=== PATIENT | female | born 1965 | race Two or more races ===

== ENCOUNTER 2022-09-30 01:22 | Day surgery (SDC) | payer OTHER, SELFPAY ==
[2022-09-30 13:07] VITALS: BP 124/78; PULSE 77; RESP 20; TEMP 36.6; O2SAT 100; BMI 31.1
[2022-09-30] MEDS: LACTATED RINGERS 1,000 ML 150 ML IV CONT (13:17)
--- NOTE | 2022-09-30 13:33 | P.PNAN_ITS ---
Anes - Initial Pre Proc Eval Procedure: Operation Date: 09/30/22 14:15 Proposed Procedures p Screening Colonoscopy - Chris Rainey MD Date/Time: 09/30/22 13:33 Surgeon: Chris Rainey MD Pre Op Diagnosis: neoplasm screening Patient Data Age: 57 Gender: F Height: 1.57 m Weight: 76.8 kg Last Vital Signs Temp 36.6 C 09/30/22 13:07 Pulse 77 09/30/22 13:07 Resp 20 09/30/22 13:07 BP 124/78 09/30/22 13:07 Pulse Ox 100 09/30/22 13:07 O2 Del Method Room Air 09/30/22 13:07 Allergies Allergy/AdvReac Type Severity Reaction Status Date / Time No Known Allergies Allergy Verified 09/30/22 13:07 Home Medications Medication Instructions Recorded Confirmed Type No Home Medications 09/28/22 09/28/22 History Patient hx anesthesia problems: none Family hx anesthesia problems: none Results Review: All pre-operative results and documents have been reviewed as part of the pre- operative evaluation. [facility] Social History Social History Smoking status: Never smoker Alcohol intake: current Drinks per week: 1 Alcohol use details: BEER Substance use: never Substance use type: does not use Living arrangements: with family Spiritual care concerns: No Anes - Eval Final PreProcedure Day of Procedure 09/30/22 13:33 Patient weight: overweight Heart: regular rate and rhythm Lungs: clear to auscultation Airway: Mallampati scale class II Neurological: alert and oriented Last oral intake: >/= 8 hours ASA classification: II Emergent: no Anesthetic plan: proceed Anesthesia type and monitoring: general GIVS and standard monitoring Results Review: All pre-operative results and documents have been reviewed as part of the pre- operative evaluation. Informed Consent: The patient's anesthetic plan and its attendant risks and benefits were discussed with the patient/family/POA. Questions were solicited and answers provided to the satisfaction of the patient/family/POA.
--- NOTE | 2022-09-30 13:39 | PM.HPGS ---
History of Present Illness History of Present Illness Consent: Risks, benefits, and alternatives have been discussed and questions answered. Patient agrees to proceed with procedure. Chief complaint: neoplasm screening Narrative: Alida Roper is a 57 year old female here for first screening colonoscopy Review of Systems Constitutional: Constitutional: Denies headache(s) and Denies weakness Eyes: Eyes: Denies blurry vision ENT: Reports Normal hearing present, Denies headache(s) and Denies neck pain Cardiovascular: Cardiovascular: Denies chest pain and Denies dyspnea Respiratory: Respiratory: Denies dyspnea Gastrointestinal: Gastrointestinal: Reports no additional gastrointestinal complaints Genitourinary: Genitourinary: Denies dysuria Musculoskeletal: Musculoskeletal: Denies neck pain Integumentary/Breasts: Skin/Breast: Denies dry skin Neurologic: Reports Normal hearing present, Denies headache(s) and Denies weakness Psychiatric: Psychiatric: Denies anxiety Endocrine: Endocrine: Denies change in body appearance Hematologic/Lymphatic: Hematologic/Lymphatic: Denies easy bleeding Allergic/Immunologic: Allergic/Immunologic: Denies urticaria PMFSH Past Medical History Medical History (Updated 09/30/22 @ 13:39 by Chris Rainey MD) Colon cancer screening Social History Social History Smoking status: Never smoker Alcohol intake: current Drinks per week: 1 Alcohol use details: BEER Substance use: never Substance use type: does not use Living arrangements: with family Spiritual care concerns: No Meds Home Medications and Allergies Home Medications Medication Instructions Recorded Confirmed Type No Home Medications 09/28/22 09/28/22 History Allergies Allergy/AdvReac Type Severity Reaction Status Date / Time No Known Allergies Allergy Verified 09/30/22 13:07 Vital Signs Vital Signs - 24 hr 09/30/22 13:07 Temperature 97.9 F Pulse Rate 77 Respiratory Rate 20 Blood Pressure 124/78 Pulse Oximetry 100 Oxygen Delivery Room Air Exam Const: General: comfortable and no acute distress HENMT: Face/Nose/Sinus: Normal nares present Eyes: General: appearance normal, both eyes and all related structures Neck: Neck: no JVD Resp: Auscultation: clear to auscultation bilaterally Cardio: Rate: regular rate Rhythm: regular rhythm GI: Inspection: non-distended GI Palp: Yes Soft to palpation Skin: General skin exam: normal color Neuro: General: gait normal Speech: normal speech Extrem: General: normal to inspection Psych: Mental Status: mental status grossly normal Assessment and Plan Assessment and plan (1) Colon cancer screening: Code(s): Z12.11 - Encounter for screening for malignant neoplasm of colon Status: Acute Assessment and Plan: colonoscopy
[2022-09-30 13:59] VITALS: BP 111/67; PULSE 66; RESP 14; O2SAT 96
[2022-09-30 14:09] VITALS: BP 103/69; PULSE 67; RESP 16; O2SAT 96
[2022-09-30 14:19] VITALS: BP 118/72; PULSE 70; RESP 16; O2SAT 96
== END 2022-09-30 14:40 | disposition home or self-care (01) ==
PROVIDERS: Visit Provider Internal Medicine Gastroenterology
PROC: 0DJD8ZZ Inspection of Lower Intestinal Tract, Via Natural or Artificial Opening Endoscopic (ICD-10-PCS; CPT 45378; principal; 2022-09-30 14:15)
DX: Z12.11 Encounter for screening for malignant neoplasm of colon (principal)
CPT/HCPCS: 45378; J2704; J7120

== ENCOUNTER 2023-03-05 11:01 | Inpatient (IN) | payer OTHER, SELFPAY ==
[2023-03-05] VITALS (38 sets, daily range): BP systolic 107–139; BP diastolic 65–113; PULSE 60–102; RESP 15–32; TEMP 36.1–36.5; O2SAT 93–100; BMI 29.5
--- NOTE | ~2023-03-05 | MR_ITS ---
EXAMINATION: MR MRCP wo/w con/w 3D wo ind DATE: 03/06/2023 08:13 INDICATION: Acute pancreatitis, cholelithiasis TECHNIQUE: Magnetic resonance imaging (MRI) of the abdomen was performed without and with intravenous contrast. Sequences included coronal T2-weighted SS-FSE ARC, coronal T2-weighted FS SS-FSE, coronal T2-weighted 2D FS FIESTA, Water:Coronal LAVA-Flex, sagittal T2-weighted SS-FSE ARC, axial SSFSE ARC, axial 3D DualEcho, axial DWI B=600, axial T1-weighted LAVA, FAT:Coronal LAVA-Flex, and coronal in and opposed phase LAVA-Flex. Thick-slab T2-weighted FRFSE-XL images were obtained for magnetic resonance cholangiopancreatography (MRCP). Maximum intensity projection 3-D reconstructions of the volumetric data were created by the technologist. Postcontrast sequences included a time course of axial T1-weig hted LAVA, FAT:Coronal LAVA-Flex, coronal in and opposed phase LAVA-Flex, and Water:Coronal LAVA-Flex . COMPARISON: CT from yesterday CONTRAST: Multihance, 15 cc FINDINGS: ABDOMEN MRI: There is loss of hepatic parenchymal signal on opposed phase imaging, consistent with he patic steatosis. There is loss of hepatic parenchymal signal on opposed phase imaging, consistent wit h hepatic steatosis. There is a 5 mm cyst of the right hepatic lobe. The spleen and adrenal glands ar e unremarkable. A stone is present in the nondistended gallbladder. There is mild wall thickening of the gallbladder. There is diffuse enlargement and edema of the pancreas. The body of the pancreas is hypoenhancing relative to the head and tail. There is a large volume of abdominal and pelvic ascites, increased since the comparison CT. The kidneys are unremarkable. There are no pathologically enlarge d abdominal lymph nodes. No dilated loops of bowel are evident. ABDOMEN MRCP: There is no intrahepatic or extrahepatic biliary dilatation. The pancreatic duct is nor mal in the head. The pancreatic duct is not visualized in the body and tail of the pancreas which may be due to edema. IMPRESSION: 1. Acute pancreatitis. Hypoenhancement in the body of the pancreas relative to the head and tail coul d be due to edema or necrosis. 2. Large volume of ascites, increased since the comparison CT. 3. Cholelithiasis with gallbladder wall thickening, likely related to pancreatitis. Reviewed, dictated and finalized at location B. ACE HAND IMPRESSION: 1. Acute pancreatitis. Hypoenhancement in the body of the pancreas relative to the head and tail could be due to edema or necrosis. 2. Large volume of ascites, increased since the comparison CT. 3. Cholelithiasis with gallbladder wall thickening, likely related to pancreati tis.
--- NOTE | ~2023-03-05 | XR_ITS ---
EXAMINATION: XR chest 1V portable INDICATION: Shortness of breath TECHNIQUE: Portable AP chest at 0955 hours COMPARISON: 03/05/2023 FINDINGS: There is mild atelectasis of the lung bases. There are small pleural effusions. No pneumoth orax is identified. The cardiomediastinal silhouette is normal. Interstitial opacities have improved. IMPRESSION: 1. Mild atelectasis of the lung bases. 2. Improved interstitial airspace opacities of the lungs, consistent with mild pulmonary edema versus pneumonia. Reviewed, dictated and finalized at location L. E COMPANION
--- NOTE | ~2023-03-05 | CT_ITS ---
EXAMINATION: CT abdomen pelvis w con INDICATION: Abdominal pain and nausea TECHNIQUE: Computed tomographic images of the abdomen and pelvis were obtained after the administrati on of 100 cc of Omnipaque 350 intravenous contrast. The dose-length product (DLP) was 630.59 mGy-cm. Automated exposure control and iterative reconstruction technique were employed. COMPARISON: None available FINDINGS: There is moderate dependent atelectasis of the visualized lung bases. The heart size is nor mal. The liver is diffusely low in attenuation when compared with the spleen, consistent with hepatic stea tosis. The spleen and adrenal glands are normal. Stones are present in the gallbladder. There is diff use enlargement and edema of the pancreas. There is a moderate volume of peripancreatic fluid which t racks into the subdiaphragmatic space on the right. Hypoattenuating lesions in the kidneys, measuring up to 4 mm on the left, are too small to characterize but likely represent cysts. The appendix is no rmal. There is mild lumbar spondylosis. No pathologically enlarged abdominal or pelvic lymph nodes ar e identified. No free intraperitoneal gas or evidence of bowel obstruction. There is an umbilical her suzy containing fat. IMPRESSION: 1. Acute pancreatitis, probable interstitial edematous pancreatitis with acute peripancreatic fluid c ollection. 2. Cholelithiasis without definite evidence of cholecystitis. Reviewed, dictated and finalized at location F. CUTTER IMPRESSION: 1. Acute pancreatitis, probable interstitial edematous pancreatitis with acute peripancreatic fluid collection. 2. Cholelithiasis without definite evidence of cholecystitis.
--- NOTE | ~2023-03-05 | XR_ITS ---
EXAMINATION: XR chest 1V portable DATE: 03/05/2023 14:21 INDICATION: Leukocytosis TECHNIQUE: frontal view of the chest was obtained. COMPARISON: None FINDINGS: Mild increased interstitial pattern in the bilateral perihilar regions. No focal airspace consolidati on, pleural effusion or pneumothorax. The cardiomediastinal silhouette is normal. Mild thoracic spond ylosis. IMPRESSION: 1. Mild bilateral perihilar increased interstitial pattern which could represent mild pulmonary edema , bronchitis/viral pneumonia or atelectasis. Reviewed, dictated and finalized at location A. NARY ASSISTANT IMPRESSION: 1. Mild bilateral perihilar increased interstitial pattern which could represen t mild pulmonary edema, bronchitis/viral pneumonia or atelectasis.
--- NOTE | ~2023-03-05 | US_ITS ---
EXAMINATION: US paracentesis abd w/image DATE: 03/06/2023 14:22 INDICATION: Ascites. TECHNIQUE: The procedure and its risks and benefits were discussed with the patient. Potential risks discussed included bleeding and infection. The skin was prepped and draped in sterile fashion. 1% lid ocaine was used for local anesthesia. Under ultrasound guidance, a 5 Fr catheter with trochar was adv anced into the ascites in the right lower quadrant. Fluid was aspirated into vacuum bottles. The cath eter was removed, and a dressing was applied. There were no immediate complications. FINDINGS: Ultrasound images demonstrate ascites and the catheter within the fluid. IMPRESSION: 1. Successful ultrasound-guided paracentesis yielding 550 mL of cloudy reddish fluid. Reviewed, dictated and finalized at location A. T OFFICER AND FLIGHT INSTRUCTOR
--- NOTE | 2023-03-05 11:20 | ED.ABDPAIN ---
HPI - Abdominal Pain General Chief Complaint: Abdominal Pain <YAZMIN Luna Last Filed: 03/05/23 19:47> Stated Complaint: abdominal pain <YAZMIN Luna Last Filed: 03/05/23 19:47> Time Seen by Provider: 03/05/23 11:11 <YAZMIN Luna Last Filed: 03/05/23 19:47> Source: patient <YAZMIN Luna Last Filed: 03/05/23 19:47> Mode of arrival: ambulatory <YAZMIN Luna Last Filed: 03/05/23 19:47> Limitations: no limitations <YAZMIN Luna Last Filed: 03/05/23 19:47> History of Present Illness HPI narrative: Patient is a 57-year-old female who presents to the ED with report of abdominal pain. Patient reports the pain began suddenly 1 hour ago. Pain began mostly in upper abdomen, but has now spread throughout her abdomen. Radiating to her back. She has not taken anything for pain. Patient reports similar pain in the past, previously been diagnosed with gallstones. Reports nausea, denies vomiting. Denies fever. Denies previous Hx kidney stones or pancreatitis. <YAZMIN Luna Last Filed: 03/05/23 19:47> Related Data Home Medications: Home Medications Medication Instructions Recorded Confirmed meclizine 12.5 mg tablet 12.5 mg PO TID PRN 02/13/23 02/13/23 <YAZMIN Luna Last Filed: 03/05/23 19:47> Allergies/Adverse Reactions: Allergies Allergy/AdvReac Type Severity Reaction Status Date / Time No Known Allergies Allergy Verified 03/05/23 11:15 <YAZMIN Luna Last Filed: 03/05/23 19:47> Review of Systems Review of Systems: CONSTITUTIONAL: Denies fever, chills, or sweats. CARDIOVASCULAR: Denies chest pain. RESPIRATORY: Denies dyspnea. GASTROINTESTINAL: See HPI. GENITOURINARY: Denies dysuria or hematuria. SKIN: Denies rash or itching. MUSCULOSKELETAL: See HPI. <Yeny Suggs PA-C - Last Filed: 03/05/23 19:47> All systems reviewed & are unremarkable except as noted in HPI and below <Yeny Suggs PA-C - Last Filed: 03/05/23 19:47> [facility], LAT[facility] Past Medical History Medical History: Medical History Colon cancer screening Unremarkable colonoscopy in September 2022. Vertigo <Yeny Suggs PA-C - Last Filed: 03/05/23 19:47> Surgical History Surgical History: Surgical History History of colonoscopy (09/2022) <Yeny Suggs PA-C - Last Filed: 03/05/23 19:47> Family History Family History: Family History Father No problems noted. Other Cancer <Yeny Suggs PA-C - Last Filed: 03/05/23 19:47> Social History Social History: Social History Social History: Surrogate medical decision maker: Brandon Blancontosh, spouse. Code status: Full code. Smoking status: Never smoker Alcohol intake: never Drinks per week: 1 Alcohol use details: Beer Substance use: never Substance use type: does not use Lack of Transportation: No Lack of Food: Never True Current Housing: I Have Housing Concerned About Future Housing: No Difficulty Paying Gas/Electric Bills: No Difficulty Paying for Meds: No Currently Unemployed: No Education: High School Diploma/GED Difficulty w/ Childcare or Family Care: No Living arrangements: with family Spiritual care concerns: No <Yeny Suggs PA-C - Last Filed: 03/05/23 19:47> Exam Narrative: GENERAL: Uncomfortable appearing, obese with BMI of 31.0, in moderate acute distress due to pain. Frequently moaning on ED stretcher. HEAD: Normocephalic, atraumatic. NECK: Supple. No adenopathy, no masses. RESPIRATORY: Airway patent, respirations nonlabored. Clear to auscultation bi
--- NOTE | 2023-03-05 11:35 | ECG_ITS ---
Measurements Intervals [place] Rate: 65 P: 49 CO: 179 QRS: 0 QRSD: 101 T: 8 QT: 432 QTc: 450 Interpretive Statements SINUS RHYTHM DELAYED PRECORDIAL R/S TRANSITION BORDERLINE T WAVE ABNORMALITY- INFERIOR LEADS BASELINE ARTIFACT- AVR, AVL, V1-V2, V4-V6 BORDERLINE ECG NO PREVIOUS ECG AVAILABLE FOR COMPARISON Electronically Signed On 03-05-2023 16:40:35 PROJECT MANAGER SENIOR by Galileo Haji D.O.
[2023-03-05] MEDS: SODIUM CHLORIDE 0.9% IV 1,000 ML 999 ML IV CONT ×2 (11:46→13:29)
[2023-03-05] MEDS: HYDROmorphone HCL INJ (*CRX) 1 MG/ML SYR IV PUSH ×3 (11:47→16:53)
[2023-03-05 11:48] LABS: Basophils Absolute Auto 0.1 K/mm3 (0.0-0.1); Basophils Percent Auto 0.3 % (0.2-1.2); Eosinophils Absolute Auto 0.2 K/mm3 (0-0.3); Eosinophils Percent Auto 0.8 % (0-4.4); Hematocrit 46.2 % (37.0-47.0); Immature Granulocyte Absolute 0.08 K/mm3 (0.00-0.031); Immature Granulocyte Percent A 0.4 % (0-0.5); Lymphocytes Absolute Auto 2.78 K/mm3 (0.9-3.2); Lymphocytes Percent Auto 14.5 % (18.3-44.2); Mean Corpuscular HGB Conc 34.6 g/dl (32-36); Mean Corpuscular Hemoglobin 31.1 pg (26-34); Mean Corpuscular Volume 89.7 fl (80-100); Mean Platelet Volume 9.2 fl (7.4-10.4); Monocytes Absolute Auto 0.9 K/mm3 (0.1-0.6); Monocytes Percent Auto 4.4 % (2.6-8.5); Neutrophils Absolute Auto 15.3 K/mm3 (1.3-6.7); Neutrophils Percent Auto 79.6 % (45.5-73.1); Platelet Count Result 318 k/mm3 (150-375); Red Blood Count 5.15 M/mm3 (4.2-5.4); Red Cell Distribution Width 12.1 % (11.5-14.5); White Blood Count 19.2 K/mm3 (4.5-10.0)
[2023-03-05] MEDS: ONDANSETRON INJ 4 MG/2 ML VIAL IV PUSH ×3 (11:48→15:56)
[2023-03-05 12:36] LABS: Lactic Acid Reflex 2.4 mmol/L (0.7-2.0)
[2023-03-05 12:42] LABS: Alanine Aminotransferase 41 U/L (6-35); Albumin Level 4.7 g/dL (3.5-5.1); Alkaline Phosphatase 99 U/L (38-126); Anion Gap 13 mmol/L (8-16); Aspartate Amino Transferase 78 U/L (14-36); Bilirubin,Total 1.4 mg/dL (0.2-1.3); Blood Urea Nitrogen 14 mg/dL (7-17); Calcium 9.7 mg/dL (8.4-10.2); Carbon Dioxide 20 mmol/L (22-30); Chloride 108 mmol/L (98-107); Estimated CRCL calculation 77 ml/min; Estimated Glomerular Filt Rate > 60; Glucose 143 mg/dL (65-110); Potassium 3.6 mmol/L (3.4-5.0); Sodium 141 mmol/L (137-145); Troponin I < 0.012 ng/mL (0.000-0.034)
[2023-03-05 13:06] LABS: Lipase > 40000 U/L (23-300)
[2023-03-05 13:37] LABS: Triglycerides 123 mg/dL (<150)
--- NOTE | 2023-03-05 14:00 | PM.IMHP ---
H&P: HPI History of Present Illness Date/Time: 03/05/23 14:30 Chief Complaint: Abdominal pain. Narrative: This is a previously healthy 57-year-old female with known gallstones who presented to the emergency department via private vehicle for evaluation of abdominal pain. The patient provides the following history. About 1 hour prior to arrival she developed sudden onset severe, diffuse upper abdominal pain radiating to the back. She has associated nausea but no vomiting. She has not noticed any significant aggravating alleviating factors. She has never had similar symptoms. She has known gallstones but no history gallbladder attacks, pancreatitis, peptic ulcers, kidney stones, or the like. She had a normal bowel movement yesterday. No fever, chills, or sweats. No recent cold or flu symptoms. She denies chest pain shortness a breath. No dysuria or hematuria. No syncope or near syncope. She denies significant caffeine and alcohol intake. No recent change in medications. In the ED: She was afebrile on arrival with stable blood pressures. Labs were significant for a WBC count of 19.2, hemoglobin 16.0, lactic acid 2.4, total bilirubin 1.4, AST 70, ALT 41, alkaline phosphatase 99, lipase greater than 40,000, triglycerides 123. CT scan of the abdomen and pelvis showed acute pancreatitis and cholelithiasis without definite evidence of cholecystitis. She received 2 L normal saline bolus, 4 mg ondansetron, and 1 mg hydromorphone. She is being admitted in this setting for further treatment evaluation of acute pancreatitis. Review of Systems Review of Systems: Twelve systems were reviewed and are negative except for as HPI. [facility] Past Medical History Medical History Colon cancer screening Unremarkable colonoscopy in September 2022. Vertigo Surgical History Surgical History History of colonoscopy (09/2022) Family History Family History Father No problems noted. Other Cancer Social History Social History Social History: Surrogate medical decision maker: Brandon Roper, spouse. Code status: Full code. Smoking status: Never smoker Alcohol intake: never Drinks per week: 1 Alcohol use details: Beer Substance use: never Substance use type: does not use Lack of Transportation: No Lack of Food: Never True Current Housing: I Have Housing Concerned About Future Housing: No Difficulty Paying Gas/Electric Bills: No Difficulty Paying for Meds: No Currently Unemployed: No Education: High School Diploma/GED Difficulty w/ Childcare or Family Care: No Living arrangements: with family Spiritual care concerns: No Meds Home Medications and Allergies Home Medications Medication Instructions Recorded Confirmed Type meclizine 12.5 mg tablet 12.5 mg PO TID PRN Dizziness Or 02/13/23 03/05/23 History Vertigo Allergies Allergy/AdvReac Type Severity Reaction Status Date / Time No Known Allergies Allergy Verified 03/05/23 11:15 Vital Signs Vital Signs - 24 hr 03/05/23 11:06 03/05/23 11:46 Temperature 97 F L Pulse Rate 101 H 69 Respiratory Rate 24 H 20 Blood Pressure 107/89 107/79 Pulse Oximetry 100 100 Oxygen Delivery Room Air Exam Narrative: General: Mildly ill-appearing female and pretty significant pain. Weight: 75.7 kg. BMI: 29.6. HEENT: PERRL, EOMI. Sclera anicteric. Tacky mucous membranes. Neck: Supple. Respiratory: Lungs are clear to auscultation bilaterally. Cardiovascular: Regular rate and rhythm with S1-S2. Gastrointestinal: Abdomen is soft and nondistended with hypoactive bowel sounds. She is tender to palpation throughout the upper abdomen with voluntary guarding but no rebound tenderness. Skin: Warm and dry. Extremities: N
[2023-03-05 14:22] LABS: Appearance Urine Clear (Clear); Bacteria Urine None Seen /hpf; Bilirubin Urine Negative (Negative); Blood Urine Negative (Negative); Color Urine Yellow (Yellow); Glucose Urine UA Negative (Negative); Ketones Urine 2+ mg/dL (Negative); Leukocyte Esterase Ur 2+ LEU/UL (Negative); Nitrate Urine Negative (Negative); Non Pathogenic Casts 0-2; Protein Urine Negative (Negative); RBC Urine 0-2 /hpf (0-2); Squamous Epithelial Cell Urine Occasional /hpf (Few); WBC Urine 21-50 /hpf
[2023-03-05 14:26] LABS: Add Urine Microscopic? YES; Specific Grav Ur 1.067 (1.001-1.035)
[2023-03-05 14:41] LABS: CRP 0.7 mg/dL (<1.0)
--- NOTE | 2023-03-05 15:02 | WPDGICN ---
Assessment and Plan Assessment and plan (1) Acute pancreatitis: Qualifiers: Acute pancreatitis complication: unspecified Pancreatitis type: unspecified pancreatitis type Qualified Code(s): K85.90 - Acute pancreatitis without necrosis or infection, unspecified Code(s): K85.90 - Acute pancreatitis without necrosis or infection, unspecified Status: Acute Assessment and Plan: first episode of pancreatitis, probably GS related (no alcohol abuse), noted cholelithiasis and elevated liver enzymes will get MRCP to assess biliary system and rule out choledocholithiasis npo, iv fluids, pain meds surgery to see patient (2) Transaminitis: Code(s): R74.01 - Elevation of levels of liver transaminase levels Status: Acute Assessment and Plan: from GS pancreatitis but also need mrcp (3) Cholelithiasis: Code(s): K80.20 - Calculus of gallbladder without cholecystitis without obstruction Status: Acute (4) Leukocytosis: Code(s): D72.829 - Elevated white blood cell count, unspecified Status: Acute (5) Elevated lactic acid level: Code(s): R79.89 - Other specified abnormal findings of blood chemistry Status: Acute Assessment and Plan: fluids, pain meds monitor (6) BPPV (benign paroxysmal positional vertigo): Code(s): H81.10 - Benign paroxysmal vertigo, unspecified ear Status: Acute GI Consult Note Consult date/time: 03/05/23 15:02 Reason for consult: pancreatitis, n/v HPI: Alida Roper is a 57 year old female originally from [facility]. She came here with new onset of severe epigastric pain, nausea and vomiting. Never had pain as intense. She had beans and tortilla for breakfast. On arrival work up consistent with pancreatitis, elevated lipase, bili 1.4, transaminases 40-70, elevated lactic acid and leukocytosis. She has ultrasound in the past and was told that had gallstones. CT scan a/p reviewed, showed acute pancreatitis, probable interstitial edematous pancreatitis with acute peripancreatic fluid collection. Cholelithiasis without definite evidence of cholecystitis. I did her screening colonoscopy as outpatient few months ago and was unremarkable. Review of Systems Constitutional: Constitutional: Denies chills Eyes: Eyes: Denies blurry vision ENT: Reports Normal hearing present Cardiovascular: Cardiovascular: Denies lightheadedness Respiratory: Respiratory: Denies wheezing Gastrointestinal: Gastrointestinal: Reports abdominal pain, Reports nausea and Reports vomiting Genitourinary: Genitourinary: Denies hematuria Musculoskeletal: Musculoskeletal: Denies neck pain Integumentary/Breasts: Skin/Breast: Denies rash Neurologic: Denies Abnormal speech present Psychiatric: Psychiatric: Denies behavioral changes [facility] Past Medical History Medical History (Updated 03/05/23 @ 14:05 by Joie Hernandez PA-C) Colon cancer screening Unremarkable colonoscopy in September 2022. Vertigo Surgical History Surgical History (Updated 03/05/23 @ 14:02 by Joie Hernandez PA-C) History of colonoscopy (09/2022) Family History Family History Father Cancer Social History Social History (Updated 03/05/23 @ 14:02 by Joie Hernandez PA-C) Social History: Surrogate medical decision maker: Brandon Roper, spouse. Code status: Full code. Smoking status: Never smoker Alcohol intake: current Drinks per week: 1 Alcohol use details: Beer Substance use: never Substance use type: does not use Lack of Transportation: No Lack of Food: Never True Current Housing: I Have Housing Concerned About Future Housing: No Difficulty Paying Gas/Electric Bills: No Difficulty Paying for Meds: No Currently Unemployed: Decline to Answer Education: High School Diploma/GED Difficulty w/ Childcare or Family Care: No Living arrangements: with
[2023-03-05 15:23] LABS: Reflex Lactic Acid Yes or No Add Lactic
--- NOTE | 2023-03-05 15:45 | ADMGEN ---
This patient, Alida Roper, was admitted to Medical Room 250-01. Patient/family oriented to hospital policies and general routines including ID bracelet, bed and alarms, visiting hours, pain management, procedures, bathroom and other care routines, personal items, smoking policy, room service/diet, and visiting hours. Information on how to activate the Rapid Response Team has been discussed. Patient/Family are encouraged to report perceived risks to care and to ask questions if they do not understand what they are told or what they should do.
[2023-03-05 16:50] LABS: Lactic Acid 1.5 mmol/L (0.7-2.0)
[2023-03-05] MEDS: SODIUM CHLORIDE 0.9% IV 1,000 ML 200 ML IV CONT ×2 (16:53→21:51)
[2023-03-05] MEDS: MORPHINE SULFATE (*CRX) 2 MG/ML INJ IV PUSH ×2 (18:20→20:02)
[2023-03-05] MEDS: MORPHINE SULFATE (*CRX) 4 MG/ML INJ IV PUSH (21:52)
[2023-03-06] VITALS (11 sets, daily range): BP systolic 130–145; BP diastolic 59–88; PULSE 80–120; RESP 20–23; TEMP 36.3–37.3; O2SAT 92–98
[2023-03-06] MEDS: MORPHINE SULFATE (*CRX) 4 MG/ML INJ IV PUSH ×4 (00:08→19:57)
[2023-03-06] MEDS: SODIUM CHLORIDE 0.9% IV 1,000 ML 200 ML IV CONT ×2 (02:11→06:36)
[2023-03-06] MEDS: MORPHINE SULFATE (*CRX) 2 MG/ML INJ IV PUSH ×5 (02:12→14:03)
[2023-03-06 06:10] LABS: Basophils Percent Auto 0.1 % (0.2-1.2); Hematocrit 44.1 % (37.0-47.0); Hemoglobin 15.2 g/dL (12.0-15.0); Immature Granulocyte Absolute 0.09 K/mm3 (0.00-0.031); Immature Granulocyte Percent A 0.5 % (0-0.5); Lymphocytes Absolute Auto 0.58 K/mm3 (0.9-3.2); Lymphocytes Percent Auto 2.9 % (18.3-44.2); Mean Corpuscular HGB Conc 34.5 g/dl (32-36); Mean Corpuscular Hemoglobin 31.1 pg (26-34); Mean Corpuscular Volume 90.2 fl (80-100); Mean Platelet Volume 8.9 fl (7.4-10.4); Monocytes Absolute Auto 1.1 K/mm3 (0.1-0.6); Monocytes Percent Auto 5.6 % (2.6-8.5); Neutrophils Percent Auto 90.9 % (45.5-73.1); Platelet Count Result 231 k/mm3 (150-375); Red Blood Count 4.89 M/mm3 (4.2-5.4); Red Cell Distribution Width 12.2 % (11.5-14.5); White Blood Count 19.8 K/mm3 (4.5-10.0)
[2023-03-06 06:23] LABS: Alanine Aminotransferase 44 U/L (6-35); Albumin Level 3.5 g/dL (3.5-5.1); Alkaline Phosphatase 69 U/L (38-126); Anion Gap 6 mmol/L (8-16); Aspartate Amino Transferase 43 U/L (14-36); Bilirubin,Total 0.8 mg/dL (0.2-1.3); Blood Urea Nitrogen 9 mg/dL (7-17); Calcium 8.2 mg/dL (8.4-10.2); Carbon Dioxide 18 mmol/L (22-30); Chloride 113 mmol/L (98-107); Estimated CRCL calculation 104 ml/min; Estimated Glomerular Filt Rate > 60; Glucose 158 mg/dL (65-110); Magnesium 1.9 mg/dL (1.6-2.3); Potassium 3.7 mmol/L (3.4-5.0); Sodium 137 mmol/L (137-145)
[2023-03-06 06:43] LABS: Lipase 4095 U/L (23-300)
--- NOTE | 2023-03-06 07:59 | PM.IMPN ---
Progress Note: A&P Assessment and Plan (1) Acute pancreatitis: Qualifiers: Acute pancreatitis complication: unspecified Pancreatitis type: unspecified pancreatitis type Qualified Code(s): K85.90 - Acute pancreatitis without necrosis or infection, unspecified Code(s): K85.90 - Acute pancreatitis without necrosis or infection, unspecified Status: Acute (2) Cholelithiasis: Code(s): K80.20 - Calculus of gallbladder without cholecystitis without obstruction Status: Acute (3) Peripancreatic fluid collection: Code(s): K86.89 - Other specified diseases of pancreas Status: Acute (4) Elevated lactic acid level: Code(s): R79.89 - Other specified abnormal findings of blood chemistry Status: Acute (5) Transaminitis: Code(s): R74.01 - Elevation of levels of liver transaminase levels Status: Acute (6) Leukocytosis: Code(s): D72.829 - Elevated white blood cell count, unspecified Status: Acute Plan Acute pancreatitis The patient presented to the emergency department for evaluation of sudden onset of severe upper abdominal pain approximately 1 hour prior to arrival as detailed in HPI. Labs, imaging, EKG, and all reports were personally reviewed. Preliminary workup is consistent with acute pancreatitis noted on CT scan with peripancreatic fluid collection and lipase greater than 40,000. Etiology is not entirely clear however gallstone pancreatitis is a consideration given her elevated LFTs although her total bilirubin is only mildly elevated her alkaline phosphatase level is normal. She does not seem to consume a much in the way of alcohol. ll continue with aggressive IV fluid rehydration (she received 2 L normal saline bolus in the ED); she is hemoconcentrated with a hemoglobin and hematocrit of 16 and 46.2% respectively. Continue bowel rest. Analgesics and antiemetics are available as needed. Consult dr. Rainey (GI) and Dr. Hilario (general surgery) has been consulted for their input. MRCP 1. Acute pancreatitis. Hypoenhancement in the body of the pancreas relative to the head and tail could be due to edema or necrosis. 2. Large volume of ascites, increased since the comparison CT. 3. Cholelithiasis with gallbladder wall thickening, likely related to pancreatitis. Triglyceride level was well within normal limits. SIRS VS Sepsis Elevated WBC count is likely a stress reaction from sudden-onset pain UA revealed pyuria chest x-ray revealed bilateral interstitial changes, suggesting pulmonary edema and pneumonia versus atelectasis Blood cultures have been obtained. Start Unasyn for possible aspiration pneumonia and UTI Decrease normal saline from 200 mL to 75 mL/hour Follow-up blood culture urine culture Subjective Date/time seen: 03/06/23 07:59 Interval history: I saw exam patient. Patient still has abdomen pain, associated with nausea denies vomiting. Patient has leukocytosis, afebrile, Exam Narrative: General: Ill-appearing, pain distress HEENT: PERRL, EOMI. Sclera anicteric. Tacky mucous membranes. Neck: Supple. Respiratory: Lungs are clear to auscultation bilaterally. Cardiovascular: Regular rate and rhythm with S1-S2. Gastrointestinal: Abdomen is soft and nondistended with hypoactive bowel sounds. Tenderness throughout the upper abdomen with voluntary guarding but no rebound tenderness. Skin: Warm and dry. Extremities: No cyanosis, clubbing, or edema. Radial and pedal pulses intact. Neurological: Alert. Cranial nerves 2-12 are grossly intact. No gross focal deficits to casual conversation. Psychiatric: Pleasant and cooperative with normal mood and affect. Judgment and insight intact. Objective Data Vital Signs Vital Signs: Vital Signs - 24 hr 03/05/23 11:06 03/05/23 11:46 03/05/23 11:12 Temperature 97 F L Pulse Rate 101 H 69 68 Respiratory Rate 24 H 20 23 H Blood Pressure 107/89 107/79 Pulse Oximetry 100
[2023-03-06] MEDS: ONDANSETRON INJ 4 MG/2 ML VIAL IV PUSH ×2 (08:35→14:03)
[2023-03-06] MEDS: AMPICILLIN SULB 3 GM/NS 100 ML 3 GM/100 ML VIAL IVPB ×3 (08:36→19:59)
--- NOTE | 2023-03-06 11:13 | PM.CNGS ---
Assessment and Plan Assessment and plan (1) Acute pancreatitis: Qualifiers: Acute pancreatitis complication: unspecified Pancreatitis type: unspecified pancreatitis type Qualified Code(s): K85.90 - Acute pancreatitis without necrosis or infection, unspecified Code(s): K85.90 - Acute pancreatitis without necrosis or infection, unspecified Status: Acute Assessment and Plan: Likely biliary pancreatitis. Cholelithiasis noted on CT. Triglycerides normal. No heavy alcohol use. LFTs trending down. MRCP negative for choledocholithiasis. Continue medical management of the pancreatitis with IV fluids and pain control. She will need an interval cholecystectomy at some point, which was discussed with the patient. We will continue to follow along to decide on optimal timing for a laparoscopic cholecystectomy after her pancreatitis has improved. (2) Cholelithiasis: Qualifiers: Biliary obstruction: without biliary obstruction Cholecystitis presence: without cholecystitis Cholelithiasis location: gallbladder Qualified Code(s): K80.20 - Calculus of gallbladder without cholecystitis without obstruction Code(s): K80.20 - Calculus of gallbladder without cholecystitis without obstruction Status: Acute Assessment and Plan: Will need eventual interval cholecystectomy as mentioned above. (3) Transaminitis: Code(s): R74.01 - Elevation of levels of liver transaminase levels Status: Acute Assessment and Plan: Trending down. MRCP negative for choledocholithiasis, but showed increase volume of ascites. GI following and ordered US-guided paracentesis. Plan I have discussed the patient's case and plan of care with Dr. Hilario. Thank you for allowing us to see the patient in consultation and we will continue to follow along with you. History of Present Illness Consult details Consult date: 03/06/23 Reason for consult: other (Acute pancreatitis, cholelithiasis) Requesting physician: Yeny Suggs PA-C Narrative: This is a 57-year-old woman who presented to the ER yesterday with complaints of abdominal pain. She reportedly ate beans in the mid morning yesterday and shortly after developed epigastric abdominal pain. Her pain progressively worsened and began radiating across her entire abdomen. The pain also radiated to her mid back. She had associated nausea and has vomited since being admitted. Her pain brought her into the ER for further evaluation. [place] [address], total bilirubin 1.4, AST 78, ALT 41, lactic acid 2.4, troponin negative, and lipase greater than 40,000. Triglycerides 123. CT scan of the abdomen and pelvis showed acute pancreatitis with probable interstitial edematous pancreatitis with acute peripancreatic fluid collection, and cholelithiasis without definitive evidence of cholecystitis. She was admitted to the hospitalist service. She was started on IV Unasyn. Our service was consulted for cholelithiasis with acute pancreatitis. GI was consulted. She had an MRCP this morning that showed acute pancreatitis with hypoenhancement in the body of the pancreas that could be due to edema or necrosis, large volume of ascites increased since the comparison CT, and cholelithiasis with gallbladder wall thickening likely related to pancreatitis. Repeat labs this morning showed white blood cell count 67190, lactic acid down to 1.5, LFTs trending down with a normal total bilirubin, and lipase down to 4095. She is seen on the medical floor. She is still having a significant amount of upper abdominal pain. Review of Systems Review of Systems: All systems reviewed & are unremarkable except as noted in HPI and below [facility] Past Medical History Medical History Colon cancer screening Unremarkable colonoscopy in September 2022. Vertigo Surgical History Surgical History (Reviewed 03/06/23 @ 11:18 by Roger
[2023-03-06 11:28] LABS: INR 1.1; Prothrombin Time 14.7 Seconds (11.1-14.7)
[2023-03-06 11:29] LABS: Partial Thromboplastin Time 26.4 SECONDS (22.3-36.8)
--- NOTE | 2023-03-06 12:27 | WPDGIPROGNO ---
Progress Note: A&P Assessment and Plan (1) Acute pancreatitis: Qualifiers: Acute pancreatitis complication: unspecified Pancreatitis type: unspecified pancreatitis type Qualified Code(s): K85.90 - Acute pancreatitis without necrosis or infection, unspecified Code(s): K85.90 - Acute pancreatitis without necrosis or infection, unspecified Status: Acute Assessment and Plan: mrcp reviewed, no bile duct stones but more ascites (I talked to radiologist and no obvious disruption of pancreatic duct) continue npo and iv fluids with pain control surgery on board because cholelithiasis, no need of ercp will attempt to get fluid if possible and check for amylase, cell count, cytology (2) Cholelithiasis: Code(s): K80.20 - Calculus of gallbladder without cholecystitis without obstruction Status: Acute Assessment and Plan: surgery to see (3) Transaminitis: Code(s): R74.01 - Elevation of levels of liver transaminase levels Status: Acute Assessment and Plan: trending down from pancreatitis no bile duct stone (4) Leukocytosis: Code(s): D72.829 - Elevated white blood cell count, unspecified Status: Acute Assessment and Plan: on abx (5) Ascites: Code(s): R18.8 - Other ascites Status: Acute Assessment and Plan: probably from pancreatitis but need to check fluid for study Subjective Date/time seen: 03/06/23 12:27 Interval history: still very uncomfortable because of pain Review of Systems Review of Systems: All systems reviewed & are unremarkable except as noted in HPI and below Exam Const: General: comfortable, no acute distress and awake Nutritional Appearance: average body habitus Orientation/consciousness: patient oriented x3 HENMT: Head: normocephalic and atraumatic Ears: hearing grossly normal bilaterally Mouth: Yes moist mucous membranes Eyes: General: appearance normal, both eyes and all related structures Pupils: Equal, round and reactive pupils present EOM: EOMs intact bilaterally Neck: Neck: normal visual inspection and full ROM Resp: Effort & Inspection: no respiratory distress Auscultation: clear to auscultation bilaterally Cardio: Rate: regular rate Rhythm: regular rhythm Heart sounds: S1 normal heart sound present and S2 normal heart sound present Peripheral pulses: Peripheral pulses 2+ throughout GI: Inspection: non-distended GI Palp: Yes Firmness to palpation present (GI) (Some firmness across the upper abdomen but soft in the lower abdomen), Yes Tenderness to palpation present (GI) (Diffusely tender worse across the upper abdomen), Yes Guarding due to palpation present (GI) (Voluntary guarding with palpation in the upper abdomen) and No Rebound tenderness present Percussion: Yes normal to percussion Auscultation: normal bowel sounds Skin: General skin exam: normal color Rashes: no rashes Neuro: General: moves all extremities and no focal motor deficits Speech: normal speech Motor exam (neuro): 5/5 motor strength present throughout Extrem: General: normal to inspection and no edema Psych: Mental Status: mental status grossly normal Affect: normal affect Attitude: cooperative Insight: Good insight present (Psych) Judgement: Good judgement present (Psych) Objective Data Vital Signs Vital Signs: Vital Signs - 24 hr 03/05/23 12:30 03/05/23 12:31 03/05/23 12:45 Temperature Pulse Rate 63 64 66 Respiratory Rate 16 17 17 Blood Pressure 109/65 112/66 Pulse Oximetry 96 94 95 Oxygen Delivery 03/05/23 12:46 03/05/23 13:06 03/05/23 13:15 Temperature Pulse Rate 66 80 79 Respiratory Rate 17 17 17 Blood Pressure Pulse Oximetry 95 100 96 Oxygen Delivery 03/05/23 13:30 03/05/23 13:45 03/05/23 14:00 Temperature Pulse Rate 76 84 94 Respiratory Rate 15 17 25 H Blood Pressure Pulse Oximetry 100 99 99 Oxygen Delivery 03/05/23 14:12 03/05/23 14:15 03/05
[2023-03-06 15:28] LABS: Appearance Peritoneal Fluid Bloody (Clear); Color Peritoneal Fluid Red (Colorless); Source Peritoneal Fluid Peritoneal Fluid
[2023-03-06 15:29] LABS: Lymphocytes Peritoneal Fluid 15 %; Monocytes Peritoneal Fluid 32 %; Neutrophils Peritoneal Fluid 53 % (0-25)
[2023-03-07] VITALS (8 sets, daily range): BP systolic 137–148; BP diastolic 64–79; PULSE 111–134; RESP 20–23; TEMP 37.2–37.7; O2SAT 89–95
[2023-03-07] MEDS: MORPHINE SULFATE (*CRX) 4 MG/ML INJ IV PUSH ×3 (00:20→20:10)
[2023-03-07] MEDS: SODIUM CHLORIDE 0.9% IV 1,000 ML 75 ML IV CONT (00:20)
[2023-03-07] MEDS: AMPICILLIN SULB 3 GM/NS 100 ML 3 GM/100 ML VIAL IVPB (02:16)
[2023-03-07] MEDS: MORPHINE SULFATE (*CRX) 2 MG/ML INJ IV PUSH ×4 (03:19→12:34)
[2023-03-07 06:16] LABS: Hematocrit 40.3 % (37.0-47.0); Hemoglobin 13.7 g/dL (12.0-15.0); Mean Corpuscular Hemoglobin 30.7 pg (26-34); Mean Corpuscular Volume 90.4 fl (80-100); Mean Platelet Volume 9.1 fl (7.4-10.4); Platelet Count Result 195 k/mm3 (150-375); Red Blood Count 4.46 M/mm3 (4.2-5.4); Red Cell Distribution Width 12.7 % (11.5-14.5); White Blood Count 34.4 K/mm3 (4.5-10.0)
[2023-03-07 06:57] LABS: Lactate Dehydrogenase 723 U/L (120-246)
[2023-03-07 07:00] LABS: Alanine Aminotransferase 88 U/L (6-35); Albumin Level 3.1 g/dL (3.5-5.1); Alkaline Phosphatase 61 U/L (38-126); Anion Gap 4 mmol/L (8-16); Aspartate Amino Transferase 101 U/L (14-36); Bilirubin,Total 1.5 mg/dL (0.2-1.3); Blood Urea Nitrogen 13 mg/dL (7-17); Calcium 8.2 mg/dL (8.4-10.2); Carbon Dioxide 24 mmol/L (22-30); Chloride 110 mmol/L (98-107); Estimated CRCL calculation 88 ml/min; Estimated Glomerular Filt Rate > 60; Glucose 133 mg/dL (65-110); Potassium 3.2 mmol/L (3.4-5.0); Sodium 138 mmol/L (137-145)
[2023-03-07 07:12] LABS: Lipase 3351 U/L (23-300)
--- NOTE | 2023-03-07 07:56 | PM.IMPN ---
Progress Note: A&P Assessment and Plan (1) Acute pancreatitis: Qualifiers: Acute pancreatitis complication: unspecified Pancreatitis type: unspecified pancreatitis type Qualified Code(s): K85.90 - Acute pancreatitis without necrosis or infection, unspecified Code(s): K85.90 - Acute pancreatitis without necrosis or infection, unspecified Status: Acute (2) Cholelithiasis: Code(s): K80.20 - Calculus of gallbladder without cholecystitis without obstruction Status: Acute (3) Peripancreatic fluid collection: Code(s): K86.89 - Other specified diseases of pancreas Status: Acute (4) Elevated lactic acid level: Code(s): R79.89 - Other specified abnormal findings of blood chemistry Status: Acute (5) Transaminitis: Code(s): R74.01 - Elevation of levels of liver transaminase levels Status: Acute (6) Leukocytosis: Code(s): D72.829 - Elevated white blood cell count, unspecified Status: Acute Plan 03/05Acute pancreatitis The patient presented to the emergency department for evaluation of sudden onset of severe upper abdominal pain approximately 1 hour prior to arrival as detailed in HPI. Labs, imaging, EKG, and all reports were personally reviewed. Preliminary workup is consistent with acute pancreatitis noted on CT scan with peripancreatic fluid collection and lipase greater than 40,000. Etiology is not entirely clear however gallstone pancreatitis is a consideration given her elevated LFTs although her total bilirubin is only mildly elevated her alkaline phosphatase level is normal. She does not seem to consume a much in the way of alcohol. ll continue with aggressive IV fluid rehydration (she received 2 L normal saline bolus in the ED); she is hemoconcentrated with a hemoglobin and hematocrit of 16 and 46.2% respectively. Continue bowel rest. Analgesics and antiemetics are available as needed. Consult dr. Rainey (GI) and Dr. Hilario (general surgery) has been consulted for their input. MRCP 1. Acute pancreatitis. Hypoenhancement in the body of the pancreas relative to the head and tail could be due to edema or necrosis. 2. Large volume of ascites, increased since the comparison CT. 3. Cholelithiasis with gallbladder wall thickening, likely related to pancreatitis. Triglyceride level was well within normal limits. SIRS VS Sepsis Elevated WBC count is likely a stress reaction from sudden-onset pain UA revealed pyuria chest x-ray revealed bilateral interstitial changes, suggesting pulmonary edema and pneumonia versus atelectasis Blood cultures have been obtained. Start Unasyn for possible aspiration pneumonia and UTI 03/06 Decrease normal saline from 200 mL to 75 mL/hour 03/06 Follow-up blood culture March 05, 2023 no growth so far, Ascites fluid culture pending Patient has low-grade fever 99.3, leukocytosis 34,400 changed to Zosyn and vancomycin on March 07 Change to lactated Ringer IV Subjective Date/time seen: 03/07/23 07:56 Interval history: I saw exam patient. Patient still has abdomen pain, but is better controlled. Patient has leukocytosis which is worse, afebrile, Exam Narrative: General: Ill-appearing, pain distress HEENT: PERRL, EOMI. Sclera anicteric. Tacky mucous membranes. Neck: Supple. Respiratory: Lungs are clear to auscultation bilaterally. Cardiovascular: Regular rate and rhythm with S1-S2. Gastrointestinal: Abdomen is soft and nondistended with hypoactive bowel sounds. Tenderness throughout the upper abdomen with voluntary guarding but no rebound tenderness. Skin: Warm and dry. Extremities: No cyanosis, clubbing, or edema. Radial and pedal pulses intact. Neurological: Alert. Cranial nerves 2-12 are grossly intact. No gross focal deficits to casual conversation. Psychiatric: Pleasant and cooperative with normal mood and affect. Judgment and insight intact. Objective Data Vital Signs Vital Signs:
[2023-03-07] MEDS: PIPERACILLN/TAZ 3.375GM/NS50ML 3.375 GM/50 ML BAG IVPB ×3 (08:54→17:41)
--- NOTE | 2023-03-07 09:07 | WPDGIPROGNO ---
Progress Note: A&P Assessment and Plan (1) Acute pancreatitis: Qualifiers: Acute pancreatitis complication: unspecified Pancreatitis type: unspecified pancreatitis type Qualified Code(s): K85.90 - Acute pancreatitis without necrosis or infection, unspecified Code(s): K85.90 - Acute pancreatitis without necrosis or infection, unspecified Status: Acute Assessment and Plan: still with pain but feeling better today noted worsening leukocytosis, changed antibiotic to zosyn cultures no growth thus far will see if she can tolerate CL diet (2) SIRS (systemic inflammatory response syndrome): Code(s): R65.10 - Systemic inflammatory response syndrome (SIRS) of non-infectious origin without acute organ dysfunction Status: Acute Assessment and Plan: from severe pancreatitis elevated wbc- changing antibiotics (3) Leukocytosis: Code(s): D72.829 - Elevated white blood cell count, unspecified Status: Acute (4) Cholelithiasis: Code(s): K80.20 - Calculus of gallbladder without cholecystitis without obstruction Status: Acute Assessment and Plan: surgery on board (5) Transaminitis: Code(s): R74.01 - Elevation of levels of liver transaminase levels Status: Acute (6) Ascites: Code(s): R18.8 - Other ascites Status: Acute Assessment and Plan: probably from severe pancreatitis no h/o liver disease pending studies (amylase, cytology, etc) Subjective Date/time seen: 03/07/23 09:07 Interval history: yesterday removed about 500ml of reddish ascitic fluid still with pain but today is lightly better Review of Systems Review of Systems: All systems reviewed & are unremarkable except as noted in HPI and below Exam Const: General: awake Nutritional Appearance: average body habitus Orientation/consciousness: patient oriented x3 Other: today is more comfortable than yesterday HENMT: Head: normocephalic and atraumatic Ears: hearing grossly normal bilaterally Mouth: Yes moist mucous membranes Eyes: General: appearance normal, both eyes and all related structures Pupils: Equal, round and reactive pupils present EOM: EOMs intact bilaterally Neck: Neck: normal visual inspection and full ROM Resp: Effort & Inspection: no respiratory distress Auscultation: clear to auscultation bilaterally Cardio: Rate: regular rate Rhythm: regular rhythm Heart sounds: S1 normal heart sound present and S2 normal heart sound present GI: Inspection: distended GI Palp: Yes Tenderness to palpation present (GI) (Diffusely tender worse across the upper abdomen) Percussion: Yes normal to percussion Auscultation: normal bowel sounds Skin: General skin exam: normal color Rashes: no rashes Neuro: General: moves all extremities and no focal motor deficits Speech: normal speech Motor exam (neuro): 5/5 motor strength present throughout Extrem: General: normal to inspection and no edema Psych: Mental Status: mental status grossly normal Affect: normal affect Attitude: cooperative Insight: Good insight present (Psych) Judgement: Good judgement present (Psych) Objective Data Vital Signs Vital Signs: Vital Signs - 24 hr 03/06/23 14:33 03/06/23 18:26 03/06/23 20:00 Temperature 97.3 F L Pulse Rate 108 H 120 H Respiratory Rate 22 H 20 Blood Pressure 145/74 H Pulse Oximetry 94 92 93 Oxygen Delivery Oxygen Flow Rate Fraction of Inspired Oxygen 03/06/23 20:57 03/06/23 21:22 03/06/23 20:00 Temperature 99.1 F Pulse Rate 120 H 116 H Respiratory Rate 20 Blood Pressure 134/88 Pulse Oximetry 93 93 93 Oxygen Delivery Room Air Room Air Oxygen Flow Rate Fraction of Inspired Oxygen 03/07/23 03:17 03/07/23 08:21 03/07/23 08:27 Temperature 99.3 F Pulse Rate 134 H Respiratory Rate 20 Blood Pressure 137/79 Pulse Oximetry 90 89 L 92 Oxygen Delivery Room Air Nasal Cannula Oxygen Flow Rate 1 Fr
[2023-03-07] MEDS: DEXTROSE 5%/LACTATED RINGERS 1,000 ML 100 ML IV CONT (09:53)
[2023-03-07 13:52] LABS: MRSA (PCR) DETECTED (NOT DETECTE)
--- NOTE | 2023-03-07 15:42 | PM.PNGS ---
Progress Note: A&P Assessment and Plan (1) Acute pancreatitis: Qualifiers: Acute pancreatitis complication: unspecified Pancreatitis type: unspecified pancreatitis type Qualified Code(s): K85.90 - Acute pancreatitis without necrosis or infection, unspecified Code(s): K85.90 - Acute pancreatitis without necrosis or infection, unspecified Status: Acute Assessment and Plan: Continue IV fluids, pain control, and medical management. (2) Cholelithiasis: Qualifiers: Biliary obstruction: without biliary obstruction Cholecystitis presence: without cholecystitis Cholelithiasis location: gallbladder Qualified Code(s): K80.20 - Calculus of gallbladder without cholecystitis without obstruction Code(s): K80.20 - Calculus of gallbladder without cholecystitis without obstruction Status: Acute Assessment and Plan: Will need eventual interval cholecystectomy once her pancreatitis has improved and she is medically stable. (3) Transaminitis: Code(s): R74.01 - Elevation of levels of liver transaminase levels Status: Acute Assessment and Plan: LFTs up slightly today with total bilirubin 1.5. MRCP negative for choledocholithiasis. Trend labs, repeat tomorrow. Plan I have discussed the patient's case and plan of care with Dr. Hilario. Subjective Subjective Date/Time Seen: 03/07/23 15:42 Patient reports: still having pain, tolerating liquids well, flatus and afebrile Interval history: Patient still having a significant amount of abdominal pain across her entire abdomen worse in the upper abdomen. No nausea or vomiting. She is tolerating clear liquids. She was put on 2 liters O2 this morning. No other complaints at this time. She had a paracentesis as well yesterday. Exam Const: General: uncomfortable (due to abdominal pain) GI: Inspection: non-distended GI Palp: Yes Firmness to palpation present (GI) (firmness across the upper abdomen), Yes Tenderness to palpation present (GI) (diffusely tender worse in the upper abdomen), Yes Guarding due to palpation present (GI) (upper abdomen) and No Rebound tenderness present Auscultation: normal bowel sounds Objective Data Vital Signs Vital Signs: Vital Signs - 24 hr 03/06/23 18:26 03/06/23 20:00 03/06/23 20:57 Temperature 99.1 F Pulse Rate 120 H 120 H Respiratory Rate 20 20 Blood Pressure 134/88 Pulse Oximetry 92 93 93 Oxygen Delivery Oxygen Flow Rate Fraction of Inspired Oxygen 03/06/23 21:22 03/06/23 20:00 03/07/23 03:17 Temperature 99.3 F Pulse Rate 116 H 134 H Respiratory Rate 20 Blood Pressure 137/79 Pulse Oximetry 93 93 90 Oxygen Delivery Room Air Room Air Oxygen Flow Rate Fraction of Inspired Oxygen 03/07/23 08:21 03/07/23 08:27 03/07/23 13:18 Temperature 98.9 F Pulse Rate 111 H Respiratory Rate 20 Blood Pressure 137/69 Pulse Oximetry 89 L 92 94 Oxygen Delivery Room Air Nasal Cannula Oxygen Flow Rate 1 Fraction of Inspired Oxygen 21 24 03/07/23 09:53 Temperature Pulse Rate Respiratory Rate Blood Pressure Pulse Oximetry 94 Oxygen Delivery Nasal Cannula Oxygen Flow Rate 2 Fraction of Inspired Oxygen Intake/Output Intake/Output: Intake & Output 03/05/23 03/05/23 03/06/23 03/07/23 00:59 23:59 23:59 23:59 Intake Total 3300 220 Output Total 550 Balance 2750 220 Meds/Results Medications: Active Medications Generic Name Dose Route Start Last Admin Trade Name Freq PRN Reason Stop Dose Admin Hydromorphone HCl 1 mg 03/05/23 13:56 03/05/23 16:53 Hydromorphone Hcl Inj (*Crx) 1 Mg/Ml Syr IV PUSH 1 mg Q4H PRN Administration Pain Rated 7-10 Hydromorphone HCl 0.5 mg 03/05/23 14:13 Hydromorphone Hcl Inj (*Crx) 1 Mg/Ml Syr IV PUSH Q3H PRN Pain Rated 4-6 Piperacillin/Tazobactam/Dextrose 3.375 gm in 50 mls @ 100 mls/hr 03/07/23 08:05 03/07/23 12:49 Zosyn 3.375 Gm/Ns 50 Ml IVPB Infu
[2023-03-07] MEDS: POTASSIUM CHLORIDE 20 MEQ PACKET (FOR LIQUID) 40 MEQ PO (17:47)
[2023-03-07] MEDS: polyethylene glycoL 3350 17 GM POWD.PACK PO (17:47)
[2023-03-08] VITALS (7 sets, daily range): BP systolic 140–143; BP diastolic 58–65; PULSE 100–116; RESP 14–23; TEMP 36.3–36.8; O2SAT 95–98
[2023-03-08] MEDS: MORPHINE SULFATE (*CRX) 4 MG/ML INJ IV PUSH ×5 (00:07→19:20)
[2023-03-08] MEDS: PIPERACILLN/TAZ 3.375GM/NS50ML 3.375 GM/50 ML BAG IVPB ×4 (00:12→17:27)
[2023-03-08] MEDS: MORPHINE SULFATE (*CRX) 2 MG/ML INJ IV PUSH (05:00)
[2023-03-08 05:15] LABS: Basophils Absolute Auto 0.1 K/mm3 (0.0-0.1); Basophils Percent Auto 0.3 % (0.2-1.2); Eosinophils Absolute Auto 0.1 K/mm3 (0-0.3); Eosinophils Percent Auto 0.2 % (0-4.4); Hematocrit 34.7 % (37.0-47.0); Hemoglobin 11.8 g/dL (12.0-15.0); Immature Granulocyte Absolute 0.48 K/mm3 (0.00-0.031); Lymphocytes Absolute Auto 0.95 K/mm3 (0.9-3.2); Lymphocytes Percent Auto 3.9 % (18.3-44.2); Mean Corpuscular Hemoglobin 31.1 pg (26-34); Mean Corpuscular Volume 91.6 fl (80-100); Mean Platelet Volume 9.5 fl (7.4-10.4); Monocytes Absolute Auto 1.3 K/mm3 (0.1-0.6); Monocytes Percent Auto 5.5 % (2.6-8.5); Neutrophils Absolute Auto 21.4 K/mm3 (1.3-6.7); Neutrophils Percent Auto 88.1 % (45.5-73.1); Platelet Count Result 164 k/mm3 (150-375); Red Blood Count 3.79 M/mm3 (4.2-5.4); White Blood Count 24.3 K/mm3 (4.5-10.0)
[2023-03-08 05:30] LABS: Anion Gap 1 mmol/L (8-16); Blood Urea Nitrogen 12 mg/dL (7-17); Calcium 7.9 mg/dL (8.4-10.2); Carbon Dioxide 29 mmol/L (22-30); Chloride 104 mmol/L (98-107); Estimated CRCL calculation 77 ml/min; Estimated Glomerular Filt Rate > 60; Glucose 162 mg/dL (65-110); Potassium 3.2 mmol/L (3.4-5.0); Sodium 134 mmol/L (137-145)
[2023-03-08] MEDS: DEXTROSE 5%/LACTATED RINGERS 1,000 ML 100 ML IV CONT (06:16)
--- NOTE | 2023-03-08 09:03 | PM.IMPN ---
Progress Note: A&P Assessment and Plan (1) Acute pancreatitis: Qualifiers: Acute pancreatitis complication: unspecified Pancreatitis type: unspecified pancreatitis type Qualified Code(s): K85.90 - Acute pancreatitis without necrosis or infection, unspecified Code(s): K85.90 - Acute pancreatitis without necrosis or infection, unspecified Status: Acute (2) Cholelithiasis: Code(s): K80.20 - Calculus of gallbladder without cholecystitis without obstruction Status: Acute (3) Peripancreatic fluid collection: Code(s): K86.89 - Other specified diseases of pancreas Status: Acute (4) Elevated lactic acid level: Code(s): R79.89 - Other specified abnormal findings of blood chemistry Status: Acute (5) Transaminitis: Code(s): R74.01 - Elevation of levels of liver transaminase levels Status: Acute (6) Leukocytosis: Code(s): D72.829 - Elevated white blood cell count, unspecified Status: Acute Plan 03/05Acute pancreatitis The patient presented to the emergency department for evaluation of sudden onset of severe upper abdominal pain approximately 1 hour prior to arrival as detailed in HPI. Labs, imaging, EKG, and all reports were personally reviewed. Preliminary workup is consistent with acute pancreatitis noted on CT scan with peripancreatic fluid collection and lipase greater than 40,000. Etiology is not entirely clear however gallstone pancreatitis is a consideration given her elevated LFTs although her total bilirubin is only mildly elevated her alkaline phosphatase level is normal. She does not seem to consume a much in the way of alcohol. ll continue with aggressive IV fluid rehydration (she received 2 L normal saline bolus in the ED); she is hemoconcentrated with a hemoglobin and hematocrit of 16 and 46.2% respectively. Continue bowel rest. Analgesics and antiemetics are available as needed. Consult dr. Rainey (GI) and Dr. Hilario (general surgery) has been consulted for their input. MRCP 1. Acute pancreatitis. Hypoenhancement in the body of the pancreas relative to the head and tail could be due to edema or necrosis. 2. Large volume of ascites, increased since the comparison CT. 3. Cholelithiasis with gallbladder wall thickening, likely related to pancreatitis. Triglyceride level was well within normal limits. SIRS VS Sepsis Elevated WBC count is likely a stress reaction from sudden-onset pain UA revealed pyuria chest x-ray revealed bilateral interstitial changes, suggesting pulmonary edema and pneumonia versus atelectasis Blood cultures have been obtained. Start Unasyn for possible aspiration pneumonia and UTI 03/06 Decrease normal saline from 200 mL to 75 mL/hour 03/06 Follow-up blood culture March 05, 2023 no growth so far, Ascites fluid culture pending Patient has low-grade fever 99.3, leukocytosis 34,400 changed to Zosyn and vancomycin on March 07 Change to lactated Ringer IV Leukocytosis improving on March 08, afebrile over the night, cultures negative Subjective Date/time seen: 03/08/23 09:03 Interval history: I saw exam patient. Patient still has abdomen pain, but is better controlled. Patient has leukocytosis is improving, afebrile, Exam Narrative: General: Ill-appearing, pain distress HEENT: PERRL, EOMI. Sclera anicteric. Tacky mucous membranes. Neck: Supple. Respiratory: Lungs are clear to auscultation bilaterally. Cardiovascular: Regular rate and rhythm with S1-S2. Gastrointestinal: Abdomen is soft and nondistended with hypoactive bowel sounds. Tenderness throughout the upper abdomen with voluntary guarding but no rebound tenderness. Skin: Warm and dry. Extremities: No cyanosis, clubbing, or edema. Radial and pedal pulses intact. Neurological: Alert. Cranial nerves 2-12 are grossly intact. No gross focal deficits to casual conversation. Psychiatric: Pleasant and cooperative with normal mood and affe
[2023-03-08 09:20] LABS: Alanine Aminotransferase 58 U/L (6-35); Albumin Level 2.8 g/dL (3.5-5.1); Alkaline Phosphatase 58 U/L (38-126); Aspartate Amino Transferase 55 U/L (14-36); Bilirubin,Total 1.6 mg/dL (0.2-1.3)
[2023-03-08] MEDS: polyethylene glycoL 3350 17 GM POWD.PACK PO (10:26)
--- NOTE | 2023-03-08 11:57 | PM.PNGS ---
Progress Note: A&P Assessment and Plan (1) Acute pancreatitis: Qualifiers: Acute pancreatitis complication: unspecified Pancreatitis type: unspecified pancreatitis type Qualified Code(s): K85.90 - Acute pancreatitis without necrosis or infection, unspecified Code(s): K85.90 - Acute pancreatitis without necrosis or infection, unspecified Status: Acute Assessment and Plan: cont to improved, exam largely benign, cont to trend labs, ok to advance to low fat diet if ok c GI, plan for interval [place] if labs/exam cont to improve (2) SIRS (systemic inflammatory response syndrome): Code(s): R65.10 - Systemic inflammatory response syndrome (SIRS) of non-infectious origin without acute organ dysfunction Status: Acute Assessment and Plan: resolving, cont current mgmt Subjective Subjective Date/Time Seen: 03/08/23 11:57 Interval history: feels better, abd pain improved, cheryl clears Review of Systems Review of Systems: All systems reviewed & are unremarkable except as noted in HPI and below Exam Const: General: cooperative, comfortable and no acute distress Resp: Auscultation: clear to auscultation bilaterally Cardio: Rate: regular rate Rhythm: regular rhythm GI: Inspection: normal to inspection and distended GI Palp: Yes abdominal tenderness, Yes Soft to palpation, Yes Tenderness to palpation present (GI), No Guarding due to palpation present (GI) and No Rigid due to palpation Objective Data Vital Signs Vital Signs: Vital Signs - 24 hr 03/07/23 13:18 03/07/23 19:54 03/07/23 20:38 Temperature 37.2 C 37.7 C H Pulse Rate 111 H 122 H 112 H Respiratory Rate 20 20 23 H Blood Pressure 137/69 148/64 H Pulse Oximetry 94 95 92 Oxygen Delivery Nasal Cannula Oxygen Flow Rate 2 Fraction of Inspired Oxygen 28 03/07/23 20:00 03/08/23 06:00 03/08/23 08:31 Temperature 36.4 C Pulse Rate 116 H 114 H Respiratory Rate 16 20 Blood Pressure 143/58 H Pulse Oximetry 92 96 95 Oxygen Delivery Nasal Cannula Nasal Cannula Oxygen Flow Rate 2 2 Fraction of Inspired Oxygen 28 Intake/Output Intake/Output: Intake & Output 03/05/23 03/06/23 03/07/23 03/08/23 23:59 23:59 23:59 23:59 Intake Total 3300 1890 290 Output Total 550 300 Balance 2750 1590 290 Meds/Results Medications: Active Medications Generic Name Dose Route Start Last Admin Trade Name Freq PRN Reason Stop Dose Admin Hydromorphone HCl 1 mg 03/05/23 13:56 03/05/23 16:53 Hydromorphone Hcl Inj (*Crx) 1 Mg/Ml Syr IV PUSH 1 mg Q4H PRN Administration Pain Rated 7-10 Hydromorphone HCl 0.5 mg 03/05/23 14:13 Hydromorphone Hcl Inj (*Crx) 1 Mg/Ml Syr IV PUSH Q3H PRN Pain Rated 4-6 Piperacillin/Tazobactam/Dextrose 3.375 gm in 50 mls @ 100 mls/hr 03/07/23 08:05 03/08/23 06:14 Zosyn 3.375 Gm/Ns 50 Ml IVPB 100 mls/hr Q6HR EN Administration Dextrose/Lactated Ringer's 1,000 mls @ 100 mls/hr 03/07/23 08:10 03/08/23 06:16 Dextrose 5%/Lactated Ringers IV CONT 100 mls/hr .Q10H EN Administration Vancomycin HCl 1,500 mg in 500 mls @ 250 mls/hr 03/07/23 21:00 03/08/23 10:25 Vancomycin 1,500 Mg/D5w 500 Ml IVPB 250 mls/hr Q12H EN Administration Potassium Chloride 100 mls @ 25 mls/hr 03/08/23 09:15 Kcl 40 Meq/Water 100 Ml IVPB 03/08/23 13:14 ONCE ONE Morphine Sulfate 2 mg 03/05/23 19:48 03/08/23 05:00 Morphine Sulfate (*Crx) 2 Mg/Ml Inj IV PUSH 2 mg Q2H PRN Administration Pain Rated 7-10 Morphine Sulfate 4 mg 03/05/23 19:48 03/08/23 09:00 Morphine Sulfate (*Crx) 4 Mg/Ml Inj IV PUSH 4 mg Q2H PRN Administration Pain Rated 7-10 Ondansetron HCl 4 mg 03/05/23 13:56 03/06/23 14:03 Ondansetron Inj 4 Mg/2 Ml Vial IV PUSH 4 mg Q4H PRN Administration Nausea Polyethylene Glycol 17 gm 03/07/23 17:40 03/08/23 10:26 Polyethylene Glycol 3350 17 Gm Powd.Pack PO 17 gm QAM EN Administrati
--- NOTE | 2023-03-08 13:49 | WPDGIPROGNO ---
Progress Note: A&P Assessment and Plan (1) Acute pancreatitis: Qualifiers: Acute pancreatitis complication: unspecified Pancreatitis type: unspecified pancreatitis type Qualified Code(s): K85.90 - Acute pancreatitis without necrosis or infection, unspecified Code(s): K85.90 - Acute pancreatitis without necrosis or infection, unspecified Status: Acute Assessment and Plan: still with pain slightly better will advance to full liquid diet, advise to only drink small amounts at time because still dealing with pain abx still high but trending down, on iv abx cultures no growth thus far (2) SIRS (systemic inflammatory response syndrome): Code(s): R65.10 - Systemic inflammatory response syndrome (SIRS) of non-infectious origin without acute organ dysfunction Status: Acute Assessment and Plan: from severe pancreatitis elevated wbc- switched antibiotics and improved (3) Leukocytosis: Code(s): D72.829 - Elevated white blood cell count, unspecified Status: Acute (4) Cholelithiasis: Code(s): K80.20 - Calculus of gallbladder without cholecystitis without obstruction Status: Acute Assessment and Plan: surgery on board (5) Transaminitis: Code(s): R74.01 - Elevation of levels of liver transaminase levels Status: Acute Assessment and Plan: repeat again in am (6) Ascites: Code(s): R18.8 - Other ascites Status: Acute Assessment and Plan: probably from severe pancreatitis no h/o liver disease pending studies (amylase, cytology, etc) Subjective Date/time seen: 03/08/23 13:49 Interval history: pain worse mostly after drinking, still requiring iv morphine Review of Systems Review of Systems: All systems reviewed & are unremarkable except as noted in HPI and below Exam Const: General: cooperative, comfortable and no acute distress HENMT: Face/Nose/Sinus: Normal nares present Eyes: Sclera: sclerae normal Neck: Neck: supple Resp: Auscultation: clear to auscultation bilaterally Cardio: Rate: regular rate Rhythm: regular rhythm GI: Inspection: normal to inspection and distended GI Palp: Yes abdominal tenderness, Yes Soft to palpation, Yes Tenderness to palpation present (GI), No Guarding due to palpation present (GI) and No Rigid due to palpation Skin: General skin exam: normal color Neuro: Speech: normal speech Objective Data Vital Signs Vital Signs: Vital Signs - 24 hr 03/07/23 19:54 11/07/23 20:38 03/07/23 20:00 Temperature 99.9 F H Pulse Rate 122 H 112 H Respiratory Rate 20 23 H Blood Pressure 148/64 H Pulse Oximetry 95 92 92 Oxygen Delivery Nasal Cannula Nasal Cannula Oxygen Flow Rate 2 2 Fraction of Inspired Oxygen 28 03/08/23 06:00 03/08/23 08:31 03/08/23 08:00 Temperature 97.6 F Pulse Rate 116 H 114 H 114 H Respiratory Rate 16 20 20 Blood Pressure 143/58 H Pulse Oximetry 96 95 95 Oxygen Delivery Nasal Cannula Nasal Cannula Oxygen Flow Rate 2 2 Fraction of Inspired Oxygen 28 28 Intake/Output Intake/Output: Intake & Output 03/05/23 03/06/23 03/07/23 03/08/23 23:59 23:59 23:59 23:59 Intake Total 3300 1890 340 Output Total 550 300 Balance 2750 1590 340 Meds/Results Medications: Active Medications Generic Name Dose Route Start Last Admin Trade Name Freq PRN Reason Stop Dose Admin Hydromorphone HCl 1 mg 03/05/23 13:56 03/05/23 16:53 Hydromorphone Hcl Inj (*Crx) 1 Mg/Ml Syr IV PUSH 1 mg Q4H PRN Administration Pain Rated 7-10 Hydromorphone HCl 0.5 mg 03/05/23 14:13 Hydromorphone Hcl Inj (*Crx) 1 Mg/Ml Syr IV PUSH Q3H PRN Pain Rated 4-6 Piperacillin/Tazobactam/Dextrose 3.375 gm in 50 mls @ 100 mls/hr 03/07/23 08:05 03/08/23 12:29 Zosyn 3.375 Gm/Ns 50 Ml IVPB 100 mls/hr Q6HR EN Administration Dextrose/Lactated Ringer's 1,000 mls @ 100 mls/hr 03/07/23 08:10 03/08/23 06:16 Dextrose 5%/Lacta
[2023-03-08] MEDS: POTASSIUM CHLORIDE INJ 40 MEQ in SODIUM CHLORIDE 0.9% IV 500 ML 100 MEQ IVPB (15:38)
[2023-03-09] VITALS (8 sets, daily range): BP systolic 136–152; BP diastolic 60–74; PULSE 81–118; RESP 18–27; TEMP 36.1–37.1; O2SAT 94–98
[2023-03-09] MEDS: MORPHINE SULFATE (*CRX) 4 MG/ML INJ IV PUSH ×5 (00:25→23:58)
[2023-03-09] MEDS: PIPERACILLN/TAZ 3.375GM/NS50ML 3.375 GM/50 ML BAG IVPB ×5 (01:20→23:58)
[2023-03-09 05:19] LABS: Alanine Aminotransferase 49 U/L (6-35); Albumin Level 3.1 g/dL (3.5-5.1); Alkaline Phosphatase 73 U/L (38-126); Anion Gap 3 mmol/L (8-16); Aspartate Amino Transferase 36 U/L (14-36); Bilirubin,Total 1.4 mg/dL (0.2-1.3); Blood Urea Nitrogen 9 mg/dL (7-17); Calcium 8.2 mg/dL (8.4-10.2); Carbon Dioxide 29 mmol/L (22-30); Chloride 103 mmol/L (98-107); Estimated CRCL calculation 105 ml/min; Estimated Glomerular Filt Rate > 60; Glucose 153 mg/dL (65-110); Lipase 193 U/L (23-300); Sodium 135 mmol/L (137-145)
[2023-03-09] MEDS: POTASSIUM CHLORIDE 20 MEQ PACKET (FOR LIQUID) 40 MEQ PO (06:02)
[2023-03-09] MEDS: HYDROmorphone HCL INJ (*CRX) 1 MG/ML SYR 0.5 MG IV PUSH (06:15)
[2023-03-09] MEDS: DEXTROSE 5%/LACTATED RINGERS 1,000 ML 100 ML IV CONT (06:49)
--- NOTE | 2023-03-09 08:40 | PM.PNGS ---
Progress Note: A&P Assessment and Plan (1) Acute pancreatitis: Qualifiers: Acute pancreatitis complication: unspecified Pancreatitis type: unspecified pancreatitis type Qualified Code(s): K85.90 - Acute pancreatitis without necrosis or infection, unspecified Code(s): K85.90 - Acute pancreatitis without necrosis or infection, unspecified Status: Acute Assessment and Plan: resolving, cont current mgmt, will start low fat diet (2) Cholelithiasis: Qualifiers: Biliary obstruction: without biliary obstruction Cholecystitis presence: without cholecystitis Cholelithiasis location: gallbladder Qualified Code(s): K80.20 - Calculus of gallbladder without cholecystitis without obstruction Code(s): K80.20 - Calculus of gallbladder without cholecystitis without obstruction Status: Acute Assessment and Plan: will need interval cholecystectomy, given severity of pancreatitis will probably defer surgery for a few wks to allow time for resolution (3) SIRS (systemic inflammatory response syndrome): Code(s): R65.10 - Systemic inflammatory response syndrome (SIRS) of non-infectious origin without acute organ dysfunction Status: Acute Assessment and Plan: resolving, secondary to severe pancreatitis Subjective Subjective Date/Time Seen: 03/09/23 08:40 Interval history: feels better, cheryl clears, not really hungry, pain improved Review of Systems Review of Systems: All systems reviewed & are unremarkable except as noted in HPI and below Exam Const: General: cooperative, comfortable, no acute distress and ill appearing Resp: Auscultation: clear to auscultation bilaterally Cardio: Rate: regular rate Rhythm: regular rhythm GI: Inspection: normal to inspection and distended GI Palp: Yes abdominal tenderness, Yes Soft to palpation, Yes Tenderness to palpation present (GI), No Guarding due to palpation present (GI) and No Rigid due to palpation Objective Data Vital Signs Vital Signs: Vital Signs - 24 hr 03/08/23 14:00 03/08/23 19:26 03/08/23 20:20 Temperature 36.8 C 36.3 C L Pulse Rate 100 105 H Respiratory Rate 14 18 Blood Pressure 140/62 143/65 H Pulse Oximetry 95 95 98 Oxygen Delivery Nasal Cannula Oxygen Flow Rate 2 03/09/23 05:45 03/08/23 20:45 03/09/23 08:10 Temperature 36.4 C L Pulse Rate 91 105 H 118 H Respiratory Rate 18 23 H 27 H Blood Pressure 139/69 Pulse Oximetry 97 97 98 Oxygen Delivery Nasal Cannula Nasal Cannula Oxygen Flow Rate 2 2 03/09/23 08:35 Temperature Pulse Rate Respiratory Rate Blood Pressure Pulse Oximetry 94 Oxygen Delivery Room Air Oxygen Flow Rate Intake/Output Intake/Output: Intake & Output 03/06/23 03/07/23 03/08/23 03/09/23 23:59 23:59 23:59 23:59 Intake Total 3300 1890 1440 1600 Output Total 550 300 Balance 2750 1590 1440 1600 Meds/Results Medications: Active Medications Generic Name Dose Route Start Last Admin Trade Name Freq PRN Reason Stop Dose Admin Hydromorphone HCl 1 mg 03/05/23 13:56 03/05/23 16:53 Hydromorphone Hcl Inj (*Crx) 1 Mg/Ml Syr IV PUSH 1 mg Q4H PRN Administration Pain Rated 7-10 Hydromorphone HCl 0.5 mg 03/05/23 14:13 03/09/23 06:15 Hydromorphone Hcl Inj (*Crx) 1 Mg/Ml Syr IV PUSH 0.5 mg Q3H PRN Administration Pain Rated 4-6 Piperacillin/Tazobactam/Dextrose 3.375 gm in 50 mls @ 100 mls/hr 03/07/23 08:05 03/09/23 06:41 Zosyn 3.375 Gm/Ns 50 Ml IVPB Infused Q6HR EN Infusion Dextrose/Lactated Ringer's 1,000 mls @ 100 mls/hr 03/07/23 08:10 03/09/23 06:50 Dextrose 5%/Lactated Ringers IV CONT Not Given .Q10H EN Vancomycin HCl 1,500 mg in 500 mls @ 250 mls/hr 03/08/23 22:00 03/09/23 06:44 Vancomycin 1,500 Mg/D5w 500 Ml IVPB 250 mls/hr Q8HR EN Administration Morphine Sulfate 2 mg 03/05/23 19:48 03/08/23 05:00 Morphine Sulfate (*Crx) 2 Mg/Ml Inj IV PUSH 2 mg Q2H PRN A
--- NOTE | 2023-03-09 09:34 | PM.IMPN ---
Progress Note: A&P Assessment and Plan (1) Acute pancreatitis: Qualifiers: Acute pancreatitis complication: unspecified Pancreatitis type: unspecified pancreatitis type Qualified Code(s): K85.90 - Acute pancreatitis without necrosis or infection, unspecified Code(s): K85.90 - Acute pancreatitis without necrosis or infection, unspecified Status: Acute (2) Cholelithiasis: Code(s): K80.20 - Calculus of gallbladder without cholecystitis without obstruction Status: Acute (3) Peripancreatic fluid collection: Code(s): K86.89 - Other specified diseases of pancreas Status: Acute (4) Elevated lactic acid level: Code(s): R79.89 - Other specified abnormal findings of blood chemistry Status: Acute (5) Transaminitis: Code(s): R74.01 - Elevation of levels of liver transaminase levels Status: Acute (6) Leukocytosis: Code(s): D72.829 - Elevated white blood cell count, unspecified Status: Acute Plan 03/05Acute pancreatitis The patient presented to the emergency department for evaluation of sudden onset of severe upper abdominal pain approximately 1 hour prior to arrival as detailed in HPI. Labs, imaging, EKG, and all reports were personally reviewed. Preliminary workup is consistent with acute pancreatitis noted on CT scan with peripancreatic fluid collection and lipase greater than 40,000. Etiology is not entirely clear however gallstone pancreatitis is a consideration given her elevated LFTs although her total bilirubin is only mildly elevated her alkaline phosphatase level is normal. She does not seem to consume a much in the way of alcohol. received aggressive IV fluid rehydration ; POA hemoconcentrated with a hemoglobin and hematocrit of 16 and 46.2% respectively. Continue bowel rest. Analgesics and antiemetics are available as needed. Consult dr. Rainey (GI) and Dr. Hilario (general surgery) has been consulted for their input. MRCP 1. Acute pancreatitis. Hypoenhancement in the body of the pancreas relative to the head and tail could be due to edema or necrosis. 2. Large volume of ascites, increased since the comparison CT. 3. Cholelithiasis with gallbladder wall thickening, likely related to pancreatitis. Triglyceride level was well within normal limits. now pain is controlled and tolerates liquid diet. dc iv fuild SIRS VS Sepsis Elevated WBC count is likely a stress reaction from sudden-onset pain UA revealed pyuria chest x-ray revealed bilateral interstitial changes, suggesting pulmonary edema and pneumonia versus atelectasis Blood cultures have been obtained. Start Unasyn for possible aspiration pneumonia and UTI 03/06 Decrease normal saline from 200 mL to 75 mL/hour 03/06 Follow-up blood culture March 05, 2023 no growth so far, Ascites fluid culture pending Patient had low-grade fever 99.3, leukocytosis 34,400 changed to Zosyn and vancomycin on March 07 Change to lactated Ringer IV Leukocytosis improving on March 08, afebrile over the night, cultures negative dc vancomycin and c/w zosyn 03/09 Subjective Date/time seen: 03/09/23 09:34 Interval history: Patient feels pain is tolerable, denies nausea vomiting. Patient is on liquid diet. Patient afebrile, leukocytosis is improved Exam Narrative: General: Ill-appearing, pain distress HEENT: PERRL, EOMI. Sclera anicteric. Tacky mucous membranes. Neck: Supple. Respiratory: Lungs are clear to auscultation bilaterally. Cardiovascular: Regular rate and rhythm with S1-S2. Gastrointestinal: Abdomen is soft and nondistended with hypoactive bowel sounds. mild abd pain without rebound tenderness. Skin: Warm and dry. Extremities: No cyanosis, clubbing, or edema. Radial and pedal pulses intact. Neurological: Alert. Cranial nerves 2-12 are grossly intact. No gross focal deficits to casual conversation. Psychiatric: Pleasant and cooperative with normal mood and affect.
[2023-03-09 10:44] LABS: Hematocrit 35.2 % (37.0-47.0); Hemoglobin 11.7 g/dL (12.0-15.0); Mean Corpuscular HGB Conc 33.2 g/dl (32-36); Mean Corpuscular Volume 93.1 fl (80-100); Platelet Count Result 212 k/mm3 (150-375); Red Blood Count 3.78 M/mm3 (4.2-5.4); Red Cell Distribution Width 13.3 % (11.5-14.5); White Blood Count 19.7 K/mm3 (4.5-10.0)
[2023-03-09] MEDS: ALBUTEROL SULFATE NEB 2.5 MG/3 ML INH INHALATION (13:01)
[2023-03-09] MEDS: IPRATROPIUM BR 0.02% INH SOLN 0.5 MG/2.5 ML VIAL INHALATION (13:01)
--- NOTE | 2023-03-09 14:51 | PC.NURSE ---
On 03/09/23, the student, [Mike Shah], provided care and completed [facility] documentation on this patient. I have reviewed the student's documentation and agree with the findings.
--- NOTE | 2023-03-09 16:38 | WPDGIPROGNO ---
Progress Note: A&P Assessment and Plan (1) Acute pancreatitis: Qualifiers: Acute pancreatitis complication: unspecified Pancreatitis type: unspecified pancreatitis type Qualified Code(s): K85.90 - Acute pancreatitis without necrosis or infection, unspecified Code(s): K85.90 - Acute pancreatitis without necrosis or infection, unspecified Status: Acute Assessment and Plan: still with pain slightly better will advance to low fat diet, advise to only eat small amounts at time wbc trending down, on abx cultures no growth thus far (2) SIRS (systemic inflammatory response syndrome): Code(s): R65.10 - Systemic inflammatory response syndrome (SIRS) of non-infectious origin without acute organ dysfunction Status: Acute Assessment and Plan: from severe pancreatitis elevated wbc- switched antibiotics and trending down now (3) Leukocytosis: Code(s): D72.829 - Elevated white blood cell count, unspecified Status: Acute (4) Cholelithiasis: Code(s): K80.20 - Calculus of gallbladder without cholecystitis without obstruction Status: Acute Assessment and Plan: surgery on board, probably lap [place] in 1-2 weeks after improvement on inflammation (5) Transaminitis: Code(s): R74.01 - Elevation of levels of liver transaminase levels Status: Acute (6) Ascites: Code(s): R18.8 - Other ascites Status: Acute Assessment and Plan: probably from severe pancreatitis no h/o liver disease pending studies (amylase, cytology, etc) Subjective Date/time seen: 03/09/23 16:38 Interval history: still pain but better since admission, tolerated liquid diet and had BM after enema Review of Systems Review of Systems: All systems reviewed & are unremarkable except as noted in HPI and below Exam Const: General: cooperative, comfortable and no acute distress HENMT: Face/Nose/Sinus: Normal nares present Eyes: Sclera: sclerae normal Neck: Neck: supple Resp: Auscultation: wheezes (mild wheezings today) Cardio: Rate: regular rate Rhythm: regular rhythm GI: Inspection: normal to inspection and distended GI Palp: Yes abdominal tenderness, Yes Soft to palpation, Yes Tenderness to palpation present (GI), No Guarding due to palpation present (GI) and No Rigid due to palpation Skin: General skin exam: normal color Neuro: Speech: normal speech Objective Data Vital Signs Vital Signs: Vital Signs - 24 hr 03/08/23 19:26 03/08/23 20:20 03/09/23 05:45 Temperature 97.4 F L 97.5 F L Pulse Rate 105 H 91 Respiratory Rate 18 18 Blood Pressure 143/65 H 139/69 Pulse Oximetry 95 98 97 Oxygen Delivery Nasal Cannula Oxygen Flow Rate 2 03/08/23 20:45 03/09/23 08:10 03/09/23 08:35 Temperature Pulse Rate 105 H 118 H Respiratory Rate 23 H 27 H Blood Pressure Pulse Oximetry 97 98 94 Oxygen Delivery Nasal Cannula Nasal Cannula Room Air Oxygen Flow Rate 2 2 03/09/23 09:45 03/09/23 10:58 03/09/23 13:02 Temperature Pulse Rate 96 81 Respiratory Rate 27 H Blood Pressure 152/74 H Pulse Oximetry Oxygen Delivery Room Air Oxygen Flow Rate 03/09/23 13:14 03/09/23 14:04 Temperature 98.7 F Pulse Rate 101 H 87 Respiratory Rate 26 H 18 Blood Pressure 136/60 Pulse Oximetry 96 Oxygen Delivery Oxygen Flow Rate Intake/Output Intake/Output: Intake & Output 03/06/23 03/07/23 03/08/23 03/09/23 23:59 23:59 23:59 23:59 Intake Total 3300 1890 1440 1989 Output Total 550 300 1 Balance 2750 1590 1440 1988 Meds/Results Medications: Active Medications Generic Name Dose Route Start Last Admin Trade Name Freq PRN Reason Stop Dose Admin Albuterol 2.5 mg 03/09/23 12:41 03/09/23 13:01 Albuterol Sulfate Neb 2.5 Mg/3 Ml Inh INHALATION 2.5 mg Q6HRT PRN Administration Shortness Of Breath Hydromorphone HCl 1 mg 03/05/23 13:56 03/05/23 16:53 Hydromorphone Hcl Inj (*Crx) 1 Mg/M
[2023-03-10] MEDS: PIPERACILLN/TAZ 3.375GM/NS50ML 3.375 GM/50 ML BAG IVPB ×4 (05:08→23:50)
[2023-03-10 05:36] VITALS: BP 156/77; PULSE 88; RESP 20; TEMP 36.6; O2SAT 95
[2023-03-10 06:03] LABS: Hematocrit 31.8 % (37.0-47.0); Hemoglobin 10.4 g/dL (12.0-15.0); Mean Corpuscular HGB Conc 32.7 g/dl (32-36); Mean Corpuscular Hemoglobin 30.1 pg (26-34); Mean Corpuscular Volume 92.2 fl (80-100); Mean Platelet Volume 9.4 fl (7.4-10.4); Platelet Count Result 213 k/mm3 (150-375); Red Blood Count 3.45 M/mm3 (4.2-5.4); Red Cell Distribution Width 13.2 % (11.5-14.5); White Blood Count 16.3 K/mm3 (4.5-10.0)
[2023-03-10 06:16] LABS: Alanine Aminotransferase 41 U/L (6-35); Albumin Level 2.9 g/dL (3.5-5.1); Alkaline Phosphatase 85 U/L (38-126); Anion Gap 7 mmol/L (8-16); Aspartate Amino Transferase 29 U/L (14-36); Bilirubin,Total 1.4 mg/dL (0.2-1.3); Blood Urea Nitrogen 10 mg/dL (7-17); Calcium 8.1 mg/dL (8.4-10.2); Carbon Dioxide 28 mmol/L (22-30); Chloride 102 mmol/L (98-107); Estimated CRCL calculation 89 ml/min; Estimated Glomerular Filt Rate > 60; Glucose 114 mg/dL (65-110); Potassium 2.9 mmol/L (3.4-5.0); Sodium 137 mmol/L (137-145)
[2023-03-10 06:32] VITALS: O2SAT 96
--- NOTE | 2023-03-10 07:24 | PM.PNGS ---
Progress Note: A&P Assessment and Plan (1) Acute pancreatitis: Qualifiers: Acute pancreatitis complication: unspecified Pancreatitis type: unspecified pancreatitis type Qualified Code(s): K85.90 - Acute pancreatitis without necrosis or infection, unspecified Code(s): K85.90 - Acute pancreatitis without necrosis or infection, unspecified Status: Acute Assessment and Plan: exam much improved, cont low fat diet, OOB, replace K, home soon c plans for interval [place] (2) Cholelithiasis: Qualifiers: Biliary obstruction: without biliary obstruction Cholecystitis presence: without cholecystitis Cholelithiasis location: gallbladder Qualified Code(s): K80.20 - Calculus of gallbladder without cholecystitis without obstruction Code(s): K80.20 - Calculus of gallbladder without cholecystitis without obstruction Status: Acute Assessment and Plan: cont to allow time for resolution of severe pancreatitis, plan for interval [place] in next few wks Subjective Subjective Date/Time Seen: 03/10/23 07:24 Interval history: feels much better, pain much improved, cheryl low fat diet, +bowel fxn Review of Systems Review of Systems: All systems reviewed & are unremarkable except as noted in HPI and below Exam Const: General: cooperative, comfortable and no acute distress Resp: Auscultation: clear to auscultation bilaterally Cardio: Rate: regular rate Rhythm: regular rhythm GI: Inspection: normal to inspection and distended GI Palp: Yes abdominal tenderness, Yes Soft to palpation, Yes Tenderness to palpation present (GI), No Guarding due to palpation present (GI) and No Rigid due to palpation Objective Data Vital Signs Vital Signs: Vital Signs - 24 hr 03/09/23 08:10 03/09/23 08:35 03/09/23 09:45 Temperature Pulse Rate 118 H Respiratory Rate 27 H Blood Pressure Pulse Oximetry 98 94 Oxygen Delivery Nasal Cannula Room Air Room Air Oxygen Flow Rate 2 03/09/23 10:58 03/09/23 13:02 03/09/23 13:14 Temperature Pulse Rate 96 81 101 H Respiratory Rate 27 H 26 H Blood Pressure 152/74 H Pulse Oximetry Oxygen Delivery Oxygen Flow Rate 03/09/23 14:04 03/09/23 20:23 03/10/23 05:36 Temperature 37.1 C 36.1 C L 36.6 C Pulse Rate 87 99 88 Respiratory Rate 18 22 H 20 Blood Pressure 136/60 149/72 H 156/77 H Pulse Oximetry 96 96 95 Oxygen Delivery Oxygen Flow Rate 03/10/23 06:32 Temperature Pulse Rate Respiratory Rate Blood Pressure Pulse Oximetry 96 Oxygen Delivery Room Air Oxygen Flow Rate Intake/Output Intake/Output: Intake & Output 03/07/23 03/08/23 03/09/23 03/10/23 23:59 23:59 23:59 23:59 Intake Total 1890 1440 2160 170 Output Total 300 1 Balance 1590 1440 2159 170 Meds/Results Medications: Active Medications Generic Name Dose Route Start Last Admin Trade Name Freq PRN Reason Stop Dose Admin Albuterol 2.5 mg 03/09/23 12:41 03/09/23 13:01 Albuterol Sulfate Neb 2.5 Mg/3 Ml Inh INHALATION 2.5 mg Q6HRT PRN Administration Shortness Of Breath Hydromorphone HCl 1 mg 03/05/23 13:56 03/05/23 16:53 Hydromorphone Hcl Inj (*Crx) 1 Mg/Ml Syr IV PUSH 1 mg Q4H PRN Administration Pain Rated 7-10 Hydromorphone HCl 0.5 mg 03/05/23 14:13 03/09/23 06:15 Hydromorphone Hcl Inj (*Crx) 1 Mg/Ml Syr IV PUSH 0.5 mg Q3H PRN Administration Pain Rated 4-6 Piperacillin/Tazobactam/Dextrose 3.375 gm in 50 mls @ 100 mls/hr 03/07/23 08:05 03/10/23 05:08 Zosyn 3.375 Gm/Ns 50 Ml IVPB 100 mls/hr Q6HR EN Administration Ipratropium [place] 0.5 mg 03/09/23 12:42 03/09/23 13:01 Ipratropium Br 0.02% Inh Soln 0.5 Mg/2.5 Ml Vial INHALATION 0.5 mg Q6HRT PRN Administration Shortness Of Breath Morphine Sulfate 2 mg 03/05/23 19:48 03/08/23 05:00 Morphine Sulfate (*Crx) 2 Mg/Ml Inj IV PUSH 2 mg Q2H PRN Administration Pain Rated 7-10 Morphine Sulfate 4 mg
[2023-03-10 07:57] LABS: NIL 0.02; Quantiferon TB Plus, 1T Negative
[2023-03-10 08:31] VITALS: PULSE 96; RESP 23; O2SAT 93
--- NOTE | 2023-03-10 08:33 | PM.IMPN ---
Progress Note: A&P Assessment and Plan (1) Acute pancreatitis: Qualifiers: Acute pancreatitis complication: unspecified Pancreatitis type: unspecified pancreatitis type Qualified Code(s): K85.90 - Acute pancreatitis without necrosis or infection, unspecified Code(s): K85.90 - Acute pancreatitis without necrosis or infection, unspecified Status: Acute (2) Cholelithiasis: Code(s): K80.20 - Calculus of gallbladder without cholecystitis without obstruction Status: Acute (3) Peripancreatic fluid collection: Code(s): K86.89 - Other specified diseases of pancreas Status: Acute (4) Elevated lactic acid level: Code(s): R79.89 - Other specified abnormal findings of blood chemistry Status: Acute (5) Transaminitis: Code(s): R74.01 - Elevation of levels of liver transaminase levels Status: Acute (6) Leukocytosis: Code(s): D72.829 - Elevated white blood cell count, unspecified Status: Acute (7) Hyponatremia: Code(s): E87.1 - Hypo-osmolality and hyponatremia Status: Acute (8) Hypokalemia: Code(s): E87.6 - Hypokalemia Status: Acute Plan 03/05Acute pancreatitis The patient presented to the emergency department for evaluation of sudden onset of severe upper abdominal pain approximately 1 hour prior to arrival as detailed in HPI. Labs, imaging, EKG, and all reports were personally reviewed. Preliminary workup is consistent with acute pancreatitis noted on CT scan with peripancreatic fluid collection and lipase greater than 40,000. Etiology is not entirely clear however gallstone pancreatitis is a consideration given her elevated LFTs although her total bilirubin is only mildly elevated her alkaline phosphatase level is normal. She does not seem to consume a much in the way of alcohol. received aggressive IV fluid rehydration ; POA hemoconcentrated with a hemoglobin and hematocrit of 16 and 46.2% respectively. Continue bowel rest. Analgesics and antiemetics are available as needed. Consult dr. Rainey (GI) and Dr. Hilario (general surgery) has been consulted for their input. MRCP 1. Acute pancreatitis. Hypoenhancement in the body of the pancreas relative to the head and tail could be due to edema or necrosis. 2. Large volume of ascites, increased since the comparison CT. 3. Cholelithiasis with gallbladder wall thickening, likely related to pancreatitis. Triglyceride level was well within normal limits. now pain is controlled and tolerates liquid diet. dc iv fuild SIRS VS Sepsis Elevated WBC count is likely a stress reaction from sudden-onset pain UA revealed pyuria chest x-ray revealed bilateral interstitial changes, suggesting pulmonary edema and pneumonia versus atelectasis Blood cultures have been obtained. Start Unasyn for possible aspiration pneumonia and UTI 03/06 Decrease normal saline from 200 mL to 75 mL/hour 03/06 Follow-up blood culture March 05, 2023 no growth so far, Ascites fluid culture pending Patient had low-grade fever 99.3, leukocytosis 34,400 changed to Zosyn and vancomycin on March 07 Change to lactated Ringer IV Leukocytosis improving on March 08, afebrile over the night, cultures negative dc vancomycin and c/w zosyn 03/09 Patient is afebrile, leukocytosis is trending down, cultures have no growth. Continue Zosyn on March 10 Hyponatremia, hypokalemia Likely secondary to poor intake Provided with supplement of sodium chloride and potassium chloride p.o. Follow magnesium and phosphate level Subjective Date/time seen: 03/10/23 08:33 Interval history: I saw on exam patient today, patient feels pain is tolerable, denies nausea vomiting. Patient can tolerate her diet, appetite improving. Leukocytosis improving, afebrile. Patient is off oxygen Exam Narrative: General: Ill-appearing, pain distress HEENT: PERRL, EOMI. Sclera anicteric. Tacky mucous membranes. Neck:
[2023-03-10 09:35] LABS: Magnesium 2.3 mg/dL (1.6-2.3); Phosphorus 1.6 mg/dL (2.5-4.5)
[2023-03-10 11:21] VITALS: BMI 30.9
[2023-03-10] MEDS: POTASSIUM CHLORIDE 20 MEQ PACKET (FOR LIQUID) 40 MEQ PO ×2 (11:34→17:23)
[2023-03-10] MEDS: SODIUM CHLORIDE 1 GM TABLET PO ×3 (11:34→17:24)
[2023-03-10] MEDS: MORPHINE SULFATE (*CRX) 4 MG/ML INJ IV PUSH ×2 (11:48→22:43)
[2023-03-10] MEDS: HYDROmorphone HCL INJ (*CRX) 1 MG/ML SYR IV PUSH ×2 (13:52→19:23)
--- NOTE | 2023-03-10 13:56 | WPDGIPROGNO ---
Progress Note: A&P Assessment and Plan (1) Acute pancreatitis: Qualifiers: Acute pancreatitis complication: unspecified Pancreatitis type: unspecified pancreatitis type Qualified Code(s): K85.90 - Acute pancreatitis without necrosis or infection, unspecified Code(s): K85.90 - Acute pancreatitis without necrosis or infection, unspecified Status: Acute Assessment and Plan: still with pain and requiring morphine today also low K eating 50% low fat diet, advise to only eat small amounts at time wbc trending down, on abx (2) SIRS (systemic inflammatory response syndrome): Code(s): R65.10 - Systemic inflammatory response syndrome (SIRS) of non-infectious origin without acute organ dysfunction Status: Acute Assessment and Plan: from severe pancreatitis elevated wbc trending down (3) Leukocytosis: Code(s): D72.829 - Elevated white blood cell count, unspecified Status: Acute (4) Cholelithiasis: Code(s): K80.20 - Calculus of gallbladder without cholecystitis without obstruction Status: Acute Assessment and Plan: surgery on board, probably lap [place] in 2 weeks after improvement on inflammation (5) Transaminitis: Code(s): R74.01 - Elevation of levels of liver transaminase levels Status: Acute (6) Ascites: Code(s): R18.8 - Other ascites Status: Acute Assessment and Plan: probably from severe pancreatitis no h/o liver disease pending studies (amylase, cytology, etc) Subjective Date/time seen: 03/10/23 13:56 Interval history: she is eating but still with abdominal pain and required morphine earlier, she is not quite ready for discharge Review of Systems Review of Systems: All systems reviewed & are unremarkable except as noted in HPI and below Exam Const: General: cooperative, comfortable and no acute distress HENMT: Face/Nose/Sinus: Normal nares present Eyes: Sclera: sclerae normal Neck: Neck: supple Resp: Auscultation: wheezes (mild wheezings today) Cardio: Rate: regular rate Rhythm: regular rhythm GI: Inspection: normal to inspection and distended GI Palp: Yes abdominal tenderness, Yes Soft to palpation, Yes Tenderness to palpation present (GI), No Guarding due to palpation present (GI) and No Rigid due to palpation Skin: General skin exam: normal color Neuro: Speech: normal speech Objective Data Vital Signs Vital Signs: Vital Signs - 24 hr 03/09/23 14:04 03/09/23 20:23 03/10/23 05:36 Temperature 98.7 F 97.0 F L 97.9 F Pulse Rate 87 99 88 Respiratory Rate 18 22 H 20 Blood Pressure 136/60 149/72 H 156/77 H Pulse Oximetry 96 96 95 Oxygen Delivery 03/10/23 06:32 03/10/23 08:31 03/10/23 08:25 Temperature Pulse Rate 96 Respiratory Rate 23 H Blood Pressure Pulse Oximetry 96 93 Oxygen Delivery Room Air Room Air Room Air Intake/Output Intake/Output: Intake & Output 03/07/23 03/08/23 03/09/23 03/10/23 23:59 23:59 23:59 23:59 Intake Total 1890 1440 2160 624 Output Total 300 1 Balance 1590 1440 2159 624 Meds/Results Medications: Active Medications Generic Name Dose Route Start Last Admin Trade Name Freq PRN Reason Stop Dose Admin Albuterol 2.5 mg 03/09/23 12:41 03/09/23 13:01 Albuterol Sulfate Neb 2.5 Mg/3 Ml Inh INHALATION 2.5 mg Q6HRT PRN Administration Shortness Of Breath Hydromorphone HCl 1 mg 03/05/23 13:56 03/10/23 13:52 Hydromorphone Hcl Inj (*Crx) 1 Mg/Ml Syr IV PUSH 1 mg Q4H PRN Administration Pain Rated 7-10 Hydromorphone HCl 0.5 mg 03/05/23 14:13 03/09/23 06:15 Hydromorphone Hcl Inj (*Crx) 1 Mg/Ml Syr IV PUSH 0.5 mg Q3H PRN Administration Pain Rated 4-6 Piperacillin/Tazobactam/Dextrose 3.375 gm in 50 mls @ 100 mls/hr 03/07/23 08:05 03/10/23 12:10 Zosyn 3.375 Gm/Ns 50 Ml IVPB Infused Q6HR EN Infusion Ipratropium [place] 0.5 mg 03/09/23 12:42 03/09/23 13:01 Ipratropiu
[2023-03-10 13:59] VITALS: BP 158/79; PULSE 94; RESP 24; TEMP 37.3; O2SAT 94
[2023-03-10 19:17] VITALS: BP 144/68; PULSE 112; RESP 24; TEMP 36.9; O2SAT 96
[2023-03-11] MEDS: HYDROmorphone HCL INJ (*CRX) 1 MG/ML SYR IV PUSH ×4 (00:37→20:03)
[2023-03-11] MEDS: MORPHINE SULFATE (*CRX) 4 MG/ML INJ IV PUSH ×4 (02:39→23:52)
[2023-03-11 03:55] VITALS: BP 166/79; PULSE 101; RESP 22; TEMP 37; O2SAT 97
[2023-03-11] MEDS: PIPERACILLN/TAZ 3.375GM/NS50ML 3.375 GM/50 ML BAG IVPB ×4 (05:08→23:57)
[2023-03-11 08:00] VITALS: PULSE 106; RESP 23; O2SAT 95
[2023-03-11 08:20] LABS: Alanine Aminotransferase 35 U/L (6-35); Albumin Level 3.3 g/dL (3.5-5.1); Alkaline Phosphatase 94 U/L (38-126); Anion Gap 8 mmol/L (8-16); Aspartate Amino Transferase 26 U/L (14-36); Bilirubin,Total 1.3 mg/dL (0.2-1.3); Blood Urea Nitrogen 9 mg/dL (7-17); Calcium 8.5 mg/dL (8.4-10.2); Carbon Dioxide 28 mmol/L (22-30); Chloride 103 mmol/L (98-107); Estimated CRCL calculation 88 ml/min; Estimated Glomerular Filt Rate > 60; Glucose 124 mg/dL (65-110); Potassium 3.4 mmol/L (3.4-5.0); Sodium 139 mmol/L (137-145)
--- NOTE | 2023-03-11 08:22 | WPDGIPROGNO ---
Progress Note: A&P Assessment and Plan (1) Acute pancreatitis: Qualifiers: Acute pancreatitis complication: unspecified Pancreatitis type: unspecified pancreatitis type Qualified Code(s): K85.90 - Acute pancreatitis without necrosis or infection, unspecified Code(s): K85.90 - Acute pancreatitis without necrosis or infection, unspecified Status: Acute Assessment and Plan: She has had a somewhat prolonged course but seems to be turning the corner. She feels good today and states that she does not need morphine this morning. Lipase is normal bilirubin 1.4 yesterday (2) Ascites: Code(s): R18.8 - Other ascites Status: Acute Assessment and Plan: likely pancreatic ascites. Her hopefully this will resolve on its own. She will need close follow-up. (3) Cholelithiasis: Qualifiers: Biliary obstruction: without biliary obstruction Cholecystitis presence: without cholecystitis Cholelithiasis location: gallbladder Qualified Code(s): K80.20 - Calculus of gallbladder without cholecystitis without obstruction Code(s): K80.20 - Calculus of gallbladder without cholecystitis without obstruction Status: Acute Assessment and Plan: She will likely have outpatient laparoscopic cholecystectomy in the near future. (4) SIRS (systemic inflammatory response syndrome): Code(s): R65.10 - Systemic inflammatory response syndrome (SIRS) of non-infectious origin without acute organ dysfunction Status: Acute Assessment and Plan: This is due to pancreatitis and seems to have resolved. Plan I will advance her diet possible discharge tomorrow Subjective Date/time seen: 03/11/23 08:22 She is feeling good today. She would like a little more to eat. The pain has subsided significantly. No nausea or vomiting. Review of Systems Review of Systems: All systems reviewed & are unremarkable except as noted in HPI and below Exam Const: General: alert Orientation/consciousness: patient oriented x3 Resp: Auscultation: clear to auscultation bilaterally Cardio: Rhythm: regular rhythm GI: GI Palp: Yes Soft to palpation, No Tenderness to palpation present (GI) and Yes No hepatosplenomegaly present Auscultation: normal bowel sounds Neuro: General: patient oriented x3 Objective Data Vital Signs Vital Signs: Vital Signs - 24 hr 03/10/23 08:31 03/10/23 08:25 03/10/23 13:59 Temperature 37.3 C Pulse Rate 96 94 Respiratory Rate 23 H 24 H Blood Pressure 158/79 H Pulse Oximetry 93 94 Oxygen Delivery Room Air Room Air 03/10/23 19:17 03/10/23 20:00 03/11/23 03:55 Temperature 36.9 C 37.0 C Pulse Rate 112 H 101 H Respiratory Rate 24 H 22 H Blood Pressure 144/68 H 166/79 H Pulse Oximetry 96 97 Oxygen Delivery Room Air Intake/Output Intake/Output: Intake & Output 03/08/23 03/09/23 03/10/23 03/11/23 23:59 23:59 23:59 23:59 Intake Total 1440 2160 1011 400 Output Total 1 Balance 1440 2159 1011 400 Meds/Results Medications: Active Medications Generic Name Dose Route Start Last Admin Trade Name Freq PRN Reason Stop Dose Admin Albuterol 2.5 mg 03/09/23 12:41 03/09/23 13:01 Albuterol Sulfate Neb 2.5 Mg/3 Ml Inh INHALATION 2.5 mg Q6HRT PRN Administration Shortness Of Breath Hydromorphone HCl 1 mg 03/05/23 13:56 03/11/23 05:08 Hydromorphone Hcl Inj (*Crx) 1 Mg/Ml Syr IV PUSH 1 mg Q4H PRN Administration Pain Rated 7-10 Hydromorphone HCl 0.5 mg 03/05/23 14:13 03/09/23 06:15 Hydromorphone Hcl Inj (*Crx) 1 Mg/Ml Syr IV PUSH 0.5 mg Q3H PRN Administration Pain Rated 4-6 Piperacillin/Tazobactam/Dextrose 3.375 gm in 50 mls @ 100 mls/hr 03/07/23 08:05 03/11/23 05:38 Zosyn 3.375 Gm/Ns 50 Ml IVPB Infused Q6HR EN Infusion Ipratropium [place] 0.5 mg 03/09/23 12:42 03/09/23 13:01 Ipratropium Br 0.02% Inh Soln 0.5 Mg/2.5 Ml Vial INHALATION 0.5 mg
[2023-03-11 08:38] LABS: Magnesium 2.3 mg/dL (1.6-2.3); Phosphorus 2.8 mg/dL (2.5-4.5)
--- NOTE | 2023-03-11 08:38 | PM.IMPN ---
Progress Note: A&P Assessment and Plan (1) Acute pancreatitis: Qualifiers: Acute pancreatitis complication: unspecified Pancreatitis type: unspecified pancreatitis type Qualified Code(s): K85.90 - Acute pancreatitis without necrosis or infection, unspecified Code(s): K85.90 - Acute pancreatitis without necrosis or infection, unspecified Status: Acute (2) Cholelithiasis: Code(s): K80.20 - Calculus of gallbladder without cholecystitis without obstruction Status: Acute (3) Peripancreatic fluid collection: Code(s): K86.89 - Other specified diseases of pancreas Status: Acute (4) Elevated lactic acid level: Code(s): R79.89 - Other specified abnormal findings of blood chemistry Status: Acute (5) Transaminitis: Code(s): R74.01 - Elevation of levels of liver transaminase levels Status: Acute (6) Leukocytosis: Code(s): D72.829 - Elevated white blood cell count, unspecified Status: Acute (7) Hyponatremia: Code(s): E87.1 - Hypo-osmolality and hyponatremia Status: Acute (8) Hypokalemia: Code(s): E87.6 - Hypokalemia Status: Acute Plan Acute pancreatitis The patient presented to the emergency department for evaluation of sudden onset of severe upper abdominal pain approximately 1 hour prior to arrival as detailed in HPI. Labs, imaging, EKG, and all reports were personally reviewed. Preliminary workup is consistent with acute pancreatitis noted on CT scan with peripancreatic fluid collection and lipase greater than 40,000. Etiology is not entirely clear however gallstone pancreatitis is a consideration given her elevated LFTs although her total bilirubin is only mildly elevated her alkaline phosphatase level is normal. She does not seem to consume a much in the way of alcohol. received aggressive IV fluid rehydration ; POA hemoconcentrated with a hemoglobin and hematocrit of 16 and 46.2% respectively. Continue bowel rest. Analgesics and antiemetics are available as needed. Consult dr. Rainey (GI) and Dr. Hilario (general surgery) has been consulted for their input. MRCP 1. Acute pancreatitis. Hypoenhancement in the body of the pancreas relative to the head and tail could be due to edema or necrosis. 2. Large volume of ascites, increased since the comparison CT. 3. Cholelithiasis with gallbladder wall thickening, likely related to pancreatitis. Triglyceride level was well within normal limits. now pain is controlled and tolerates liquid diet. dc iv fuild SIRS VS Sepsis Elevated WBC count is likely a stress reaction from sudden-onset pain UA revealed pyuria chest x-ray revealed bilateral interstitial changes, suggesting pulmonary edema and pneumonia versus atelectasis Blood cultures have been obtained. Start Unasyn for possible aspiration pneumonia and UTI 03/06 Decrease normal saline from 200 mL to 75 mL/hour 03/06 Follow-up blood culture March 05, 2023 no growth so far, Ascites fluid culture pending Patient had low-grade fever 99.3, leukocytosis 34,400 changed to Zosyn and vancomycin on March 07 Change to lactated Ringer IV Leukocytosis improving on March 08, afebrile over the night, cultures negative dc vancomycin and c/w zosyn 03/09 Patient is afebrile, leukocytosis is trending down, cultures have no growth. Continue Zosyn on March 10 Hyponatremia, hypokalemia Likely secondary to poor intake Provided with supplement of sodium chloride and potassium chloride p.o. corrected Follow magnesium and phosphate level Subjective Date/time seen: 03/11/23 08:38 Interval history: she is eating but still with abdominal pain and required morphine and dilaudid iv Exam Narrative: General: Ill-appearing, pain distress HEENT: PERRL, EOMI. Sclera anicteric. Tacky mucous membranes. Neck: Supple. Respiratory: Lungs are clear to auscultation bilaterally. Cardiovascular: Regular rate and r
[2023-03-11] MEDS: SODIUM CHLORIDE 1 GM TABLET PO ×3 (09:10→17:13)
[2023-03-11] MEDS: POTASSIUM CHLORIDE 20 MEQ PACKET (FOR LIQUID) 40 MEQ PO ×2 (09:10→17:13)
[2023-03-11] MEDS: polyethylene glycoL 3350 17 GM POWD.PACK PO (09:10)
[2023-03-11 12:31] VITALS: PULSE 106; RESP 23; O2SAT 95
[2023-03-11 13:22] LABS: Albumin Peritoneal Fluid 1.9 g/dL
[2023-03-11 14:00] VITALS: BP 153/81; PULSE 103; RESP 22; TEMP 36.8; O2SAT 96
[2023-03-11 19:14] VITALS: BP 140/69; PULSE 123; RESP 20; TEMP 37.4; O2SAT 98
[2023-03-12] VITALS (7 sets, daily range): BP systolic 130–147; BP diastolic 71–82; PULSE 95–114; RESP 16–21; TEMP 36.9–37.2; O2SAT 96–98
[2023-03-12] MEDS: HYDROmorphone HCL INJ (*CRX) 1 MG/ML SYR IV PUSH ×3 (02:58→22:31)
[2023-03-12] MEDS: MORPHINE SULFATE (*CRX) 4 MG/ML INJ IV PUSH (05:42)
[2023-03-12] MEDS: PIPERACILLN/TAZ 3.375GM/NS50ML 3.375 GM/50 ML BAG IVPB ×3 (05:44→17:00)
--- NOTE | 2023-03-12 07:43 | WPDGIPROGNO ---
Progress Note: A&P Assessment and Plan (1) Acute pancreatitis: Qualifiers: Acute pancreatitis complication: unspecified Pancreatitis type: unspecified pancreatitis type Qualified Code(s): K85.90 - Acute pancreatitis without necrosis or infection, unspecified Code(s): K85.90 - Acute pancreatitis without necrosis or infection, unspecified Status: Acute Assessment and Plan: She has had a somewhat prolonged course but seems to be turning the corner. She feels good today and states that she does not need morphine this morning. Lipase is normal bilirubin 1.4 yesterday (2) Ascites: Code(s): R18.8 - Other ascites Status: Acute Assessment and Plan: ascites due to pancreatitis. Her abdomen is soft. There is still palpable ascites. Will recheck white blood count today and also CRP. (3) Cholelithiasis: Qualifiers: Biliary obstruction: without biliary obstruction Cholecystitis presence: without cholecystitis Cholelithiasis location: gallbladder Qualified Code(s): K80.20 - Calculus of gallbladder without cholecystitis without obstruction Code(s): K80.20 - Calculus of gallbladder without cholecystitis without obstruction Status: Acute Assessment and Plan: She will likely have outpatient laparoscopic cholecystectomy in the near future. (4) SIRS (systemic inflammatory response syndrome): Code(s): R65.10 - Systemic inflammatory response syndrome (SIRS) of non-infectious origin without acute organ dysfunction Status: Acute Assessment and Plan: This is due to pancreatitis and seems to have resolved. Plan I will advance her diet possible discharge tomorrow Will recheck white blood count today. Subjective Date/time seen: 03/12/23 07:43 the patient states that she did so so with food yesterday. Did not cause pain but not particularly hungry. We discussed her pancreatic ascites. She was wondering if more should be taken off. Exam Const: General: alert Orientation/consciousness: patient oriented x3 Resp: Auscultation: clear to auscultation bilaterally Cardio: Rhythm: regular rhythm GI: GI Palp: Yes Soft to palpation, No Tenderness to palpation present (GI) and Yes No hepatosplenomegaly present Auscultation: normal bowel sounds Neuro: General: patient oriented x3 Objective Data Vital Signs Vital Signs: Vital Signs - 24 hr 03/11/23 12:31 03/11/23 08:00 03/11/23 14:00 Temperature 36.8 C Pulse Rate 106 H 106 H 103 H Respiratory Rate 23 H 23 H 22 H Blood Pressure 153/81 H Pulse Oximetry 95 95 96 Oxygen Delivery Room Air Room Air Fraction of Inspired Oxygen 28 03/11/23 19:14 03/11/23 20:00 03/12/23 04:27 Temperature 37.4 C 37.0 C Pulse Rate 123 H 104 H Respiratory Rate 20 16 Blood Pressure 140/69 130/75 Pulse Oximetry 98 97 Oxygen Delivery Room Air Fraction of Inspired Oxygen 03/12/23 06:17 Temperature Pulse Rate Respiratory Rate 18 Blood Pressure Pulse Oximetry 97 Oxygen Delivery Room Air Fraction of Inspired Oxygen Intake/Output Intake/Output: Intake & Output 03/09/23 03/10/23 03/11/23 03/12/23 23:59 23:59 23:59 23:59 Intake Total 2160 1011 1200 200 Output Total 1 Balance 2159 1011 1200 200 Meds/Results Medications: Active Medications Generic Name Dose Route Start Last Admin Trade Name Freq PRN Reason Stop Dose Admin Acetaminophen 650 mg 03/11/23 13:14 Acetaminophen 325 Mg Tablet PO Q6H PRN Mild Pain (1-3) or Fever Albuterol 2.5 mg 03/09/23 12:41 03/09/23 13:01 Albuterol Sulfate Neb 2.5 Mg/3 Ml Inh INHALATION 2.5 mg Q6HRT PRN Administration Shortness Of Breath Hydromorphone HCl 0.5 mg 03/11/23 13:14 Hydromorphone Hcl Inj (*Crx) 1 Mg/Ml Syr IV PUSH Q6H PRN Pain Rated 4-6 Hydromorphone HCl 1 mg 03/11/23 13:14 03/12/23 02:58 Hydromorphone Hcl Inj (*Crx) 1 Mg/Ml Syr IV PUSH 1 mg
--- NOTE | 2023-03-12 08:01 | PM.IMPN ---
Progress Note: A&P Assessment and Plan (1) Acute pancreatitis: Qualifiers: Acute pancreatitis complication: unspecified Pancreatitis type: unspecified pancreatitis type Qualified Code(s): K85.90 - Acute pancreatitis without necrosis or infection, unspecified Code(s): K85.90 - Acute pancreatitis without necrosis or infection, unspecified Status: Acute (2) Cholelithiasis: Code(s): K80.20 - Calculus of gallbladder without cholecystitis without obstruction Status: Acute (3) Peripancreatic fluid collection: Code(s): K86.89 - Other specified diseases of pancreas Status: Acute (4) Elevated lactic acid level: Code(s): R79.89 - Other specified abnormal findings of blood chemistry Status: Acute (5) Transaminitis: Code(s): R74.01 - Elevation of levels of liver transaminase levels Status: Acute (6) Leukocytosis: Code(s): D72.829 - Elevated white blood cell count, unspecified Status: Acute (7) Hyponatremia: Code(s): E87.1 - Hypo-osmolality and hyponatremia Status: Acute (8) Hypokalemia: Code(s): E87.6 - Hypokalemia Status: Acute Plan Acute pancreatitis The patient presented to the emergency department for evaluation of sudden onset of severe upper abdominal pain approximately 1 hour prior to arrival as detailed in HPI. Labs, imaging, EKG, and all reports were personally reviewed. Preliminary workup is consistent with acute pancreatitis noted on CT scan with peripancreatic fluid collection and lipase greater than 40,000. Etiology is not entirely clear however gallstone pancreatitis is a consideration given her elevated LFTs although her total bilirubin is only mildly elevated her alkaline phosphatase level is normal. She does not seem to consume a much in the way of alcohol. received aggressive IV fluid rehydration ; POA hemoconcentrated with a hemoglobin and hematocrit of 16 and 46.2% respectively. Continue bowel rest. Analgesics and antiemetics are available as needed. Consult dr. Rainey (GI) and Dr. Hilario (general surgery) has been consulted for their input. MRCP 1. Acute pancreatitis. Hypoenhancement in the body of the pancreas relative to the head and tail could be due to edema or necrosis. 2. Large volume of ascites, increased since the comparison CT. 3. Cholelithiasis with gallbladder wall thickening, likely related to pancreatitis. Triglyceride level was well within normal limits. now pain is better controlled and tolerates liquid diet. dc iv fuild SIRS VS Sepsis Elevated WBC count is likely a stress reaction from sudden-onset pain UA revealed pyuria chest x-ray revealed bilateral interstitial changes, suggesting pulmonary edema and pneumonia versus atelectasis Blood cultures have been obtained. Start Unasyn for possible aspiration pneumonia and UTI 03/06 Decrease normal saline from 200 mL to 75 mL/hour 03/06 Follow-up blood culture March 05, 2023 no growth so far, Ascites fluid culture pending Patient had low-grade fever 99.3, leukocytosis 34,400 changed to Zosyn and vancomycin on March 07 Change to lactated Ringer IV Leukocytosis improving on March 08, afebrile over the night, cultures negative dc vancomycin and c/w zosyn 03/09 Patient is afebrile, leukocytosis is trending down, cultures have no growth. Continue Zosyn on March 12 Hyponatremia, hypokalemia Likely secondary to poor intake Provided with supplement of sodium chloride and potassium chloride p.o. corrected Follow magnesium and phosphate level Subjective Date/time seen: 03/12/23 08:01 Interval history: she still with abdominal pain and required morphine and dilaudid iv, patient tolerated clear diet well without nausea vomiting Exam Narrative: General: Ill-appearing, pain distress HEENT: PERRL, EOMI. Sclera anicteric. Tacky mucous membranes. Neck: Supple. Respiratory: Lungs are clear to auscultati
[2023-03-12 09:03] LABS: Basophils Absolute Auto 0.1 K/mm3 (0.0-0.1); Basophils Percent Auto 0.6 % (0.2-1.2); Eosinophils Absolute Auto 0.3 K/mm3 (0-0.3); Eosinophils Percent Auto 1.7 % (0-4.4); Hematocrit 31.8 % (37.0-47.0); Hemoglobin 10.8 g/dL (12.0-15.0); Immature Granulocyte Absolute 0.76 K/mm3 (0.00-0.031); Immature Granulocyte Percent A 4.7 % (0-0.5); Lymphocytes Percent Auto 10.5 % (18.3-44.2); Mean Corpuscular Hemoglobin 30.9 pg (26-34); Mean Corpuscular Volume 91.1 fl (80-100); Mean Platelet Volume 8.9 fl (7.4-10.4); Monocytes Absolute Auto 1.5 K/mm3 (0.1-0.6); Monocytes Percent Auto 9.1 % (2.6-8.5); Neutrophils Absolute Auto 11.9 K/mm3 (1.3-6.7); Neutrophils Percent Auto 73.4 % (45.5-73.1); Platelet Count Result 296 k/mm3 (150-375); Red Blood Count 3.49 M/mm3 (4.2-5.4); Red Cell Distribution Width 13.5 % (11.5-14.5); White Blood Count 16.2 K/mm3 (4.5-10.0)
[2023-03-12] MEDS: SODIUM CHLORIDE 1 GM TABLET PO ×3 (09:07→16:59)
[2023-03-12] MEDS: POTASSIUM CHLORIDE 20 MEQ PACKET (FOR LIQUID) 40 MEQ PO ×2 (09:07→17:00)
[2023-03-12] MEDS: LIPASE/AMYLASE/PROTEASE 12,000 UNITS CAP 3 CAP PO ×3 (09:07→16:59)
[2023-03-12 09:20] LABS: Phosphorus 3.5 mg/dL (2.5-4.5)
[2023-03-12 09:21] LABS: Alanine Aminotransferase 31 U/L (6-35); Alkaline Phosphatase 94 U/L (38-126); Anion Gap 8 mmol/L (8-16); Aspartate Amino Transferase 26 U/L (14-36); Bilirubin,Total 1.1 mg/dL (0.2-1.3); Blood Urea Nitrogen 9 mg/dL (7-17); Calcium 8.5 mg/dL (8.4-10.2); Carbon Dioxide 27 mmol/L (22-30); Chloride 103 mmol/L (98-107); Estimated CRCL calculation 88 ml/min; Estimated Glomerular Filt Rate > 60; Glucose 116 mg/dL (65-110); Potassium 3.3 mmol/L (3.4-5.0); Sodium 138 mmol/L (137-145)
[2023-03-12] MEDS: oxyCODONE/ACETAMINOPHEN (*CRX) 5-325 MG TABLET 1 TABLET PO ×2 (12:11→18:14)
[2023-03-12 18:25] LABS: Total Protein Peritoneal Fluid 3.6 g/dL
[2023-03-13] MEDS: oxyCODONE/ACETAMINOPHEN (*CRX) 5-325 MG TABLET 1 TABLET PO ×3 (00:45→12:24)
[2023-03-13] MEDS: PIPERACILLN/TAZ 3.375GM/NS50ML 3.375 GM/50 ML BAG IVPB ×3 (00:46→11:41)
[2023-03-13] MEDS: HYDROmorphone HCL INJ (*CRX) 1 MG/ML SYR IV PUSH (03:51)
[2023-03-13 04:59] VITALS: BP 132/59; PULSE 93; RESP 18; TEMP 36.2; O2SAT 99
--- NOTE | 2023-03-13 07:17 | PM.IMPN ---
Progress Note: A&P Assessment and Plan (1) Acute pancreatitis: Qualifiers: Acute pancreatitis complication: unspecified Pancreatitis type: unspecified pancreatitis type Qualified Code(s): K85.90 - Acute pancreatitis without necrosis or infection, unspecified Code(s): K85.90 - Acute pancreatitis without necrosis or infection, unspecified Status: Acute (2) Cholelithiasis: Code(s): K80.20 - Calculus of gallbladder without cholecystitis without obstruction Status: Acute (3) Peripancreatic fluid collection: Code(s): K86.89 - Other specified diseases of pancreas Status: Acute (4) Elevated lactic acid level: Code(s): R79.89 - Other specified abnormal findings of blood chemistry Status: Acute (5) Transaminitis: Code(s): R74.01 - Elevation of levels of liver transaminase levels Status: Acute (6) Leukocytosis: Code(s): D72.829 - Elevated white blood cell count, unspecified Status: Acute (7) Hyponatremia: Code(s): E87.1 - Hypo-osmolality and hyponatremia Status: Acute (8) Hypokalemia: Code(s): E87.6 - Hypokalemia Status: Acute Plan Acute pancreatitis The patient presented to the emergency department for evaluation of sudden onset of severe upper abdominal pain approximately 1 hour prior to arrival as detailed in HPI. Labs, imaging, EKG, and all reports were personally reviewed. Preliminary workup is consistent with acute pancreatitis noted on CT scan with peripancreatic fluid collection and lipase greater than 40,000. Etiology is not entirely clear however gallstone pancreatitis is a consideration given her elevated LFTs although her total bilirubin is only mildly elevated her alkaline phosphatase level is normal. She does not seem to consume a much in the way of alcohol. received aggressive IV fluid rehydration ; POA hemoconcentrated with a hemoglobin and hematocrit of 16 and 46.2% respectively. Continue bowel rest. Analgesics and antiemetics are available as needed. Consult dr. Rainey (GI) and Dr. Hilario (general surgery) has been consulted for their input. MRCP 1. Acute pancreatitis. Hypoenhancement in the body of the pancreas relative to the head and tail could be due to edema or necrosis. 2. Large volume of ascites, increased since the comparison CT. 3. Cholelithiasis with gallbladder wall thickening, likely related to pancreatitis. Triglyceride level was well within normal limits. now pain is better controlled on medication, patient can not tolerate solid diet, denies nausea vomiting. Plans to discharge patient with pain medication today Patient will see general surgeon in weeks for evaluation and cholecystectomy per general surgeon plan SIRS VS Sepsis Elevated WBC count is likely a stress reaction from sudden-onset pain UA revealed pyuria chest x-ray revealed bilateral interstitial changes, suggesting pulmonary edema and pneumonia versus atelectasis Blood cultures have been obtained. Start Unasyn for possible aspiration pneumonia and UTI 03/06 Decrease normal saline from 200 mL to 75 mL/hour 03/06 Follow-up blood culture March 05, 2023 no growth so far, Ascites fluid culture pending Patient had low-grade fever 99.3, leukocytosis 34,400 changed to Zosyn and vancomycin on March 07 Change to lactated Ringer IV Leukocytosis improving on March 08, afebrile over the night, cultures negative dc vancomycin and c/w zosyn 03/09 Patient is afebrile, leukocytosis is trending down, cultures have no growth. Continue Zosyn on March 12 Hyponatremia, hypokalemia Likely secondary to poor intake Provided with supplement of sodium chloride and potassium chloride p.o. corrected Follow magnesium and phosphate level, all within normal limits Subjective Date/time seen: 03/13/23 07:17 Interval history: I saw on exam patient today, patient tolerated liquid and solid diet without nausea vomiting. Afia
[2023-03-13 08:09] LABS: Basophils Absolute Auto 0.1 K/mm3 (0.0-0.1); Basophils Percent Auto 0.5 % (0.2-1.2); Eosinophils Absolute Auto 0.3 K/mm3 (0-0.3); Eosinophils Percent Auto 1.8 % (0-4.4); Hematocrit 31.4 % (37.0-47.0); Hemoglobin 10.4 g/dL (12.0-15.0); Immature Granulocyte Absolute 0.54 K/mm3 (0.00-0.031); Immature Granulocyte Percent A 3.2 % (0-0.5); Lymphocytes Percent Auto 10.7 % (18.3-44.2); Mean Corpuscular HGB Conc 33.1 g/dl (32-36); Mean Corpuscular Hemoglobin 30.8 pg (26-34); Mean Corpuscular Volume 92.9 fl (80-100); Mean Platelet Volume 9.1 fl (7.4-10.4); Monocytes Absolute Auto 1.3 K/mm3 (0.1-0.6); Monocytes Percent Auto 7.6 % (2.6-8.5); Neutrophils Absolute Auto 12.8 K/mm3 (1.3-6.7); Neutrophils Percent Auto 76.2 % (45.5-73.1); Platelet Count Result 339 k/mm3 (150-375); Red Blood Count 3.38 M/mm3 (4.2-5.4); Red Cell Distribution Width 13.7 % (11.5-14.5); White Blood Count 16.8 K/mm3 (4.5-10.0)
[2023-03-13] MEDS: SODIUM CHLORIDE 1 GM TABLET PO ×2 (08:19→12:24)
[2023-03-13] MEDS: LIPASE/AMYLASE/PROTEASE 12,000 UNITS CAP 3 CAP PO ×2 (08:19→11:41)
[2023-03-13] MEDS: POTASSIUM CHLORIDE 20 MEQ PACKET (FOR LIQUID) 40 MEQ PO (08:20)
[2023-03-13 09:36] VITALS: PULSE 84; RESP 24; O2SAT 94
--- NOTE | 2023-03-13 10:32 | PM.DS ---
DS: Admitting Diagnosis Discharge Date 03/13/23 Admitting Diagnosis (1) Acute pancreatitis: ?Qualifiers: ?Acute pancreatitis complication:?unspecified??Pancreatitis type:?unspecified pancreatitis type? Qualified Code(s):?K85.90 - Acute pancreatitis without necrosis or infection, unspecified ?Code(s): K85.90 - Acute pancreatitis without necrosis or infection, unspecified ?Status:?Acute (2) Cholelithiasis: ?Code(s): K80.20 - Calculus of gallbladder without cholecystitis without obstruction ?Status:?Acute (3) Peripancreatic fluid collection: ?Code(s): K86.89 - Other specified diseases of pancreas ?Status:?Acute (4) Elevated lactic acid level: ?Code(s): R79.89 - Other specified abnormal findings of blood chemistry ?Status:?Acute (5) Transaminitis: ?Code(s): R74.01 - Elevation of levels of liver transaminase levels ?Status:?Acute (6) Leukocytosis: ?Code(s): D72.829 - Elevated white blood cell count, unspecified ?Status:?Acute (7) Hyponatremia: ?Code(s): E87.1 - Hypo-osmolality and hyponatremia ?Status:?Acute (8) Hypokalemia: ?Code(s): E87.6 - Hypokalemia ?Status:?Acute DS: Discharge Diagnosis Discharge Diagnosis (1) Acute pancreatitis: Qualifiers: Acute pancreatitis complication: unspecified Pancreatitis type: unspecified pancreatitis type Qualified Code(s): K85.90 - Acute pancreatitis without necrosis or infection, unspecified Code(s): K85.90 - Acute pancreatitis without necrosis or infection, unspecified Status: Acute (2) Cholelithiasis: Code(s): K80.20 - Calculus of gallbladder without cholecystitis without obstruction Status: Acute (3) Peripancreatic fluid collection: Code(s): K86.89 - Other specified diseases of pancreas Status: Acute (4) Elevated lactic acid level: Code(s): R79.89 - Other specified abnormal findings of blood chemistry Status: Acute (5) Transaminitis: Code(s): R74.01 - Elevation of levels of liver transaminase levels Status: Acute (6) Leukocytosis: Code(s): D72.829 - Elevated white blood cell count, unspecified Status: Acute (7) Hyponatremia: Code(s): E87.1 - Hypo-osmolality and hyponatremia Status: Acute (8) Hypokalemia: Code(s): E87.6 - Hypokalemia Status: Acute DS: Summary Hospital Course Hospital Course: Per H&P, this is a previously healthy 57-year-old female with known gallstones who presented to the emergency department via private vehicle for evaluation of abdominal pain. The patient provides the following history. About 1 hour prior to arrival she developed sudden onset severe, diffuse upper abdominal pain radiating to the back. She has associated nausea but no vomiting. She has not noticed any significant aggravating alleviating factors. She has never had similar symptoms. She has known gallstones but no history gallbladder attacks, pancreatitis, peptic ulcers, kidney stones, or the like. She had a normal bowel movement yesterday. No fever, chills, or sweats. No recent cold or flu symptoms. She denies chest pain shortness a breath. No dysuria or hematuria. No syncope or near syncope. She denies significant caffeine and alcohol intake. No recent change in medications. In the ED: She was afebrile on arrival with stable blood pressures. Labs were significant for a WBC count of 19.2, hemoglobin 16.0, lactic acid 2.4, total bilirubin 1.4, AST 70, ALT 41, alkaline phosphatase 99, lipase greater than 40,000, triglycerides 123. CT scan of the abdomen and pelvis showed acute pancreatitis and cholelithiasis without definite evidence of cholecystitis. She received 2 L normal saline bolus, 4 mg ondansetron, and 1 mg hydromorphone. She is being admitted in this setting for further treatment evaluation of acute pancreatitis. The following medical issues have been addressed during hospitalization Acute
[2023-03-13 14:00] VITALS: BP 128/62; PULSE 93; RESP 17; TEMP 36.3; O2SAT 98
--- NOTE | 2023-03-13 14:33 | WPDGIPROGNO ---
Progress Note: A&P Assessment and Plan (1) Acute pancreatitis: Qualifiers: Acute pancreatitis complication: unspecified Pancreatitis type: unspecified pancreatitis type Qualified Code(s): K85.90 - Acute pancreatitis without necrosis or infection, unspecified Code(s): K85.90 - Acute pancreatitis without necrosis or infection, unspecified Status: Acute Assessment and Plan: she is clinically much better and tolerating low fat diet she is going home normalization of liver enzymes follow-up with surgery next week for interval cholecystectomy (2) SIRS (systemic inflammatory response syndrome): Code(s): R65.10 - Systemic inflammatory response syndrome (SIRS) of non-infectious origin without acute organ dysfunction Status: Acute Assessment and Plan: from severe pancreatitis resolved (3) Leukocytosis: Code(s): D72.829 - Elevated white blood cell count, unspecified Status: Acute (4) Cholelithiasis: Code(s): K80.20 - Calculus of gallbladder without cholecystitis without obstruction Status: Acute Assessment and Plan: timing of lap [place] by surgery (5) Ascites: Code(s): R18.8 - Other ascites Status: Acute Assessment and Plan: probably from severe pancreatitis no h/o liver disease pending studies (amylase, cytology, etc) Subjective Date/time seen: 03/13/23 14:33 Interval history: she is feeling better, eating more, breathing without any difficulty and denies any nausea she is ready to go home Review of Systems Review of Systems: All systems reviewed & are unremarkable except as noted in HPI and below Exam Const: General: cooperative, comfortable and no acute distress HENMT: Face/Nose/Sinus: Normal nares present Eyes: Sclera: sclerae normal Neck: Neck: supple Resp: Effort & Inspection: normal respiratory effort Auscultation: clear to auscultation bilaterally Cardio: Rate: regular rate Rhythm: regular rhythm GI: Inspection: normal to inspection GI Palp: Yes abdominal tenderness, Yes Soft to palpation, Yes Tenderness to palpation present (GI) (minimally tender, much better), No Guarding due to palpation present (GI) and No Rigid due to palpation Skin: General skin exam: normal color Neuro: Speech: normal speech Psych: Affect: normal affect Objective Data Vital Signs Vital Signs: Vital Signs - 24 hr 03/12/23 20:12 03/12/23 21:07 03/12/23 20:00 Temperature 98.5 F Pulse Rate 95 97 Respiratory Rate 18 21 H Blood Pressure 141/71 H Pulse Oximetry 97 96 Oxygen Delivery Room Air Room Air 03/13/23 04:59 03/13/23 09:36 03/13/23 08:20 Temperature 97.1 F L Pulse Rate 93 84 Respiratory Rate 18 24 H Blood Pressure 132/59 L Pulse Oximetry 99 94 Oxygen Delivery Room Air Room Air Intake/Output Intake/Output: Intake & Output 03/10/23 03/11/23 03/12/23 03/13/23 23:59 23:59 23:59 23:59 Intake Total 1011 1200 1020 220 Balance 1011 1200 1020 220 Meds/Results Medications: Active Medications Generic Name Dose Route Start Last Admin Trade Name Freq PRN Reason Stop Dose Admin Acetaminophen 650 mg 03/11/23 13:14 Acetaminophen 325 Mg Tablet PO Q6H PRN Mild Pain (1-3) or Fever Albuterol 2.5 mg 03/09/23 12:41 03/09/23 13:01 Albuterol Sulfate Neb 2.5 Mg/3 Ml Inh INHALATION 2.5 mg Q6HRT PRN Administration Shortness Of Breath Lipase/Protease/Amylase 3 cap 03/12/23 08:00 03/13/23 11:41 Lipase/Amylase/Protease 12,000 Units Cap PO 3 cap TIDWM EN Administration Hydromorphone HCl 0.5 mg 03/11/23 13:14 Hydromorphone Hcl Inj (*Crx) 1 Mg/Ml Syr IV PUSH Q6H PRN Pain Rated 4-6 Hydromorphone HCl 1 mg 03/11/23 13:14 03/13/23 03:51 Hydromorphone Hcl Inj (*Crx) 1 Mg/Ml Syr IV PUSH 1 mg Q6H PRN Administration Pain Rated 7-10 Ipratropium [place] 0.5 mg 03/09/23 12:42 03/09/23 13:01 Ipratropium Br 0.02% Inh Soln 0.
[2023-03-13 21:53] LABS: Amylase Peritoneal Fluid 8055 U/L
== END 2023-03-13 16:05 | disposition home or self-care (01) | DRG 439 ==
LOC: ANHED 13:34 → ANH2MED 03-06 10:30
PROVIDERS: Internal Medicine Gastroenterology; Nurse Practitioner Family; Physician Assistant; Surgery; Admitting Provider Internal Medicine; Emergency Provider Physician Assistant; Visit Provider Hospitalist
DX: K85.10 Biliary acute pancreatitis without necrosis or infection (principal); E87.1 Hypo-osmolality and hyponatremia; R18.8 Other ascites; K80.20 Calculus of gallbladder without cholecystitis without obstruction; E87.6 Hypokalemia; H81.10 Benign paroxysmal vertigo, unspecified ear
CPT/HCPCS: 36415; 49083; 71045; 74177; 74183; 76376; 80048; 80053; 80202; 81001; 81025; 82042; 82150; 83605; 83615; 83690; 83735; 84100; 84157; 84478; 84484; 85025; 85027; 85610; 85730; 86140; 86480; 87040; 87070; 87075; 87086; 87088; 87205; 87641; 88108; 88305; 89051; 93005; 94640; 94762; 96361; 96374; 96375; 96376; 99285; A9270; A9577; C1729; J0295; J1170; J2270; J2405; J2543; J3370; J3480; J7030; J7040; J7121; Q9967

== ENCOUNTER 2023-03-27 09:26 | Outpatient (CLI) | payer OTHER, SELFPAY ==
[2023-03-27 10:46] LABS: Basophils Absolute Auto 0.1 K/mm3 (0.0-0.1); Basophils Percent Auto 0.8 % (0.2-1.2); Eosinophils Absolute Auto 0.2 K/mm3 (0-0.3); Eosinophils Percent Auto 2.6 % (0-4.4); Hematocrit 36.5 % (37.0-47.0); Hemoglobin 11.7 g/dL (12.0-15.0); Immature Granulocyte Absolute 0.02 K/mm3 (0.00-0.031); Immature Granulocyte Percent A 0.3 % (0-0.5); Lymphocytes Absolute Auto 1.78 K/mm3 (0.9-3.2); Mean Corpuscular HGB Conc 32.1 g/dl (32-36); Mean Corpuscular Hemoglobin 29.7 pg (26-34); Mean Corpuscular Volume 92.6 fl (80-100); Mean Platelet Volume 8.9 fl (7.4-10.4); Monocytes Absolute Auto 0.5 K/mm3 (0.1-0.6); Monocytes Percent Auto 7.8 % (2.6-8.5); Neutrophils Absolute Auto 3.6 K/mm3 (1.3-6.7); Neutrophils Percent Auto 59.5 % (45.5-73.1); Platelet Count Result 506 k/mm3 (150-375); Red Blood Count 3.94 M/mm3 (4.2-5.4); Red Cell Distribution Width 12.8 % (11.5-14.5); White Blood Count 6.1 K/mm3 (4.5-10.0)
[2023-03-27 10:59] LABS: Alanine Aminotransferase 24 U/L (6-35); Albumin Level 4.2 g/dL (3.5-5.1); Alkaline Phosphatase 109 U/L (38-126); Anion Gap 14 mmol/L (8-16); Aspartate Amino Transferase 31 U/L (14-36); Bilirubin,Total 0.9 mg/dL (0.2-1.3); Blood Urea Nitrogen 14 mg/dL (7-17); Calcium 10.1 mg/dL (8.4-10.2); Carbon Dioxide 23 mmol/L (22-30); Chloride 104 mmol/L (98-107); Estimated Glomerular Filt Rate > 60; Glucose 93 mg/dL (65-110); Lipase 332 U/L (23-300); Potassium 3.1 mmol/L (3.4-5.0); Sodium 141 mmol/L (137-145)
== END 2023-03-27 09:27 | disposition home or self-care (01) ==
LOC: ANHLAB 09:29
PROVIDERS: Visit Provider Surgery
DX: K85.10 Biliary acute pancreatitis without necrosis or infection (principal)
CPT/HCPCS: 36415; 80053; 83690; 85025

== ENCOUNTER 2023-04-06 03:11 | Day surgery (SDC) | payer OTHER, SELFPAY ==
[2023-04-05 09:08] VITALS: BMI 30.9
--- NOTE | 2023-04-05 09:14 | PC.NURSE ---
Report to the Outpatient Waiting Room, entrance under the green pavilion located off [facility], at time __0630 on date __04/06/23___. Planned Procedure Time: ___829 . Time changes happen often and if your time is changed the preop area will call you the afternoon before. - You and your visitor will be asked to self-screen and do not enter if you have any COVID symptoms. - A mask is optional within the hospital at this time. Patients may have clear liquids (water, carbonated beverages, clear teas, apple juice) until 3 hours prior to surgery (0530 AM) with a maximum of 20 ounces. - No food from midnight until time of surgery - Infants may have breast milk until 4 hours before surgery, formula 6 hours prior to surgery. - Children will be allowed to drink immediately following surgery. If applicable, please bring a bottle or sippy cup to assist with drinking. Juice, water, soda, and popsicles are readily available. For infants on formula, please bring formula the day of surgery. Pacifiers are allowed. Take the following medications with a SIP of water the morning of surgery: N/A DO NOT STOP ANY OF YOUR OTHER PRESCRIPTION MEDICATIONS PRIOR TO SURGERY ?EXCEPT THE FOLLOWING Medications to discontinue per physician N/A Date to take last dose Please no make-up, nail english, hairspray, perfume, deodorant, or body powder the day of surgery. No jewelry (including any body piercings) or valuables the day of surgery, leave them at home. Please take a shower or bath the night before, or the morning of, surgery with an antibacterial soap. Wear comfortable, loose fitting clothing. Children are encouraged to wear pajamas. - Jewelry must be removed prior to entering the operating room. Rings and piercings that are not removed may be cut off. - The hospital will not accept responsibility for valuables. - Please leave all valuables, including medications, at home the day of surgery. If you are going home after surgery, a licensed non cdl driver must drive you home. - NO public transportation without another adult if you receive anesthesia. - We recommend that an adult stay with you for 24 hours following discharge. - We also recommend that you do not drive, make important decision, drink alcoholic beverages, or take any drugs that were not prescribed by your health care provider for at least 24 hours after your discharge time. For Pediatric surgeries, we recommend two adults accompany the child home. Follow any additional instructions given to you from your surgeon. If you or anyone in your household have experienced Covid symptoms in the past week, please notify your surgeon or the nurse liaison at the phone number below for possible testing. Telephone instructions given to _PT'S SPOUSE_and asked if any additional questions and then verbalized understanding. Patient advised to call surgeon office or pre surgery nurse liaison [phone] if any additional questions.
[2023-04-06] VITALS (9 sets, daily range): BP systolic 116–140; BP diastolic 68–80; PULSE 77–101; RESP 14–20; TEMP 36.6–36.8; O2SAT 97–100
--- NOTE | 2023-04-06 07:21 | P.PNAN_ITS ---
Anes - Initial Pre Proc Eval Procedure: Operation Date: 04/06/23 08:30 Proposed Procedures p Laparoscopic Cholecystectomy - Noemi Hilario MD Date/Time: 04/06/23 07:21 Surgeon: Noemi Hilario MD Pre Op Diagnosis: Biliary pancreatitis Patient Data Age: 57 Gender: F Height: 1.56 m Weight: 75 kg Allergies Allergy/AdvReac Type Severity Reaction Status Date / Time No Known Allergies Allergy Verified 04/05/23 09:05 Home Medications Medication Instructions Recorded Confirmed Type No Home Medications 04/05/23 04/05/23 History Patient hx anesthesia problems: none Family hx anesthesia problems: none Results Review: All pre-operative results and documents have been reviewed as part of the pre- operative evaluation. [facility] Past Medical History Medical History Ascites Colon cancer screening Unremarkable colonoscopy in September 2022. SIRS (systemic inflammatory response syndrome) Vertigo Surgical History Surgical History (Updated 04/06/23 @ 07:22 by Bk Perez MD) H/O arthroscopic knee surgery History of delivery History of colonoscopy (09/2022) Family History Family History Father No problems noted. Other Cancer Social History Social History Social History: Surrogate medical decision maker: Brandon Roper, spouse. Code status: Full code. Smoking status: Never smoker Second hand tobacco smoke exposure: No Alcohol intake: current Drinks per week: 1 Alcohol use details: MAYBE 1/MONTH Substance use: never Substance use type: does not use Lack of Transportation: No Lack of Food: Never True Current Housing: I Have Housing Concerned About Future Housing: No Difficulty Paying Gas/Electric Bills: No Difficulty Paying for Meds: No Currently Unemployed: No Education: High School Diploma/GED Difficulty w/ Childcare or Family Care: No Living arrangements: with family Spiritual care concerns: No Anes - Eval Final PreProcedure Day of Procedure 04/06/23 07:21 Patient weight: overweight Heart: regular rate and rhythm Lungs: clear to auscultation Airway: Mallampati scale class II Neurological: alert and oriented Last oral intake: >/= 8 hours ASA classification: II Emergent: no Anesthetic plan: proceed Anesthesia type and monitoring: general ETT and standard monitoring Results Review: All pre-operative results and documents have been reviewed as part of the pre- operative evaluation. Informed Consent: The patient's anesthetic plan and its attendant risks and benefits were discussed with the patient/family/POA. Questions were solicited and answers provided to the satisfaction of the patient/family/POA.
--- NOTE | 2023-04-06 07:25 | WPDHPUPDATE1 ---
History and Physical Update Update Date/Time: 04/06/23 07:25 History and Physical has been reviewed, including an updated exam of the patient. There are NO changes in the patient's condition. Risks, benefits, and alternatives have been discussed and questions answered. Patient agrees to proceed with procedure.
[2023-04-06] MEDS: ACETAMINOPHEN 500 MG TABLET 1000 MG PO (07:40)
[2023-04-06] MEDS: MIDAZOLAM HCL (*CRX) 2 MG/2 ML VIAL IV PUSH (07:40)
[2023-04-06] MEDS: KETOROLAC 15 MG/ML VIAL (*BKC) IV PUSH (07:40)
[2023-04-06] MEDS: LACTATED RINGERS 1,000 ML 30 ML IV CONT (07:40)
[2023-04-06 08:02] LABS: Amylase 299 U/L (30-110); Lipase 345 U/L (23-300)
[2023-04-06] MEDS: ceFAZolin 2 GM/D5W 50 ML 2 GM/50 ML BAG IVPB (08:36)
--- NOTE | 2023-04-06 08:40 | SUR.PREOP ---
repeated lipase and amylase for DOS. both elevated. dr adame aware. no orders at this time.
--- NOTE | 2023-04-06 08:41 | SUR.PREOP ---
glucose elevated this am. 233. dr reyes aware. no orders at this time.
[2023-04-06] MEDS: BUPIVACAINE/EPINEPHRINE 0.5% 50 ML VIAL INFILTRATE (09:05)
--- NOTE | 2023-04-06 09:33 | P.OP_ITS ---
Procedure Note - Detailed Date of Procedure 04/06/23 Pre-op Diagnosis Biliary pancreatitis, cholecystitis, cholelithiasis Post-op Diagnosis Same Procedure Performed Laparoscopic cholecystectomy Surgeon Noemi Hilario MD Anesthesia General Indications 57-year-old female presenting initially with acute biliary pancreatitis status post ERCP. Patient now set up for interval cholecystectomy. Findings Moderate cholecystitis, cholelithiasis Description of Procedure The patient was taken to the operating room placed in the supine position. After adequate induction of general anesthesia, the patient was prepped and draped in normal sterile fashion. A time-out was then performed to verify the patient's identity as well as the procedure being performed. I then made a 5 mm incision in the infraumbilical region. Through this, a Veress needle was placed into the peritoneal cavity and CO2 gas was then insufflated. After adequate pneumoperitoneum was achieved, the Veress needle was removed and a 5 mm optiview trocar was placed through this incision under direct visualization. I then placed the laparoscope through this trocar site and under direct visualization placed a further 12 mm subxiphoid port as well as 2 additional 5 mm ports in the right upper abdomen. The gallbladder was then identified and was noted to be moderately inflamed, distended, and full of gallstones. I was able to place a grasper at the dome of the gallbladder and this was retracted anterior and cephalad up over the liver. A 2nd retractor was then placed at the infundibulum and retracted laterally, this allowed visualization of the triangle of Calot. I then was able to visualize the cystic duct in its entirety from its proximal insertion into the gallbladder, to its distal junction with the common hepatic/common bile duct junction. At this point, I carefully skeletonized the proximal cystic duct with the [place] dissector. I then clipped and transected the proximal cystic duct. Next I visualized the cystic artery. Again the artery was skeletonized, clipped, and transected. I then used the Bovie cautery to take down the peritoneal attachments of the gallbladder off the liver bed. This was somewhat difficult given the amount of inflammation in the posterior space. Once the gallbladder specimen was completely detached, an endo-pouch was placed through the 12 mm port site. I then placed the gallbladder specimen into the Endo pouch and removed the endo-pouch from the 12 mm port site. The specimen will now be sent to pathology for further review. I then copiously irrigated the right upper quadrant. Some mild oozing was noted in the liver bed and this was controlled with the bovie cautery. Hemostasis was noted in the liver bed, the clips were noted to be in good position on both the cystic duct stump and the cystic artery stump. No other pathology was noted in the right upper quadrant. I then moved the laparoscope to the subxiphoid port. No iatrogenic injury or other pathology was noted in the lower abdomen. I then closed the 12 mm trocar site under direct visualization using the Lai cone and 0 Vicryl suture. At this point, the abdomen was desufflated and all ports removed. All port sites were then closed with 4.O Monocryl subcuticular sutures. Dermabond was placed on each incision. The patient tolerated the procedure well, was extubated in the operating room postoperative and will be transferred to the recovery room in stable condition Estimated Blood Loss 20 Drains No Packing No Pathology Yes Complications No immediate complications Condition Stable Disposition PACU [facility] Surgery - Charge Forward: Emil Evans
[2023-04-06] MEDS: ONDANSETRON INJ 4 MG/2 ML VIAL IV PUSH (11:16)
[2023-04-06] MEDS: oxyCODONE HCL (*CRX) 5 MG TAB IR PO (11:52)
== END 2023-04-06 12:25 | disposition home or self-care (01) ==
PROVIDERS: Visit Provider Surgery
PROC: 0FT44ZZ Resection of Gallbladder, Percutaneous Endoscopic Approach (ICD-10-PCS; CPT 47562; principal; 2023-04-06 08:30)
DX: K80.10 Calculus of gallbladder with chronic cholecystitis without obstruction (principal); K85.10 Biliary acute pancreatitis without necrosis or infection
CPT/HCPCS: 47562; 36415; 82150; 83690; 86850; 86900; 86901; 88304; A9270; J0690; J1100; J1885; J2250; J2405; J2704; J3010; J7030; J7120

== ENCOUNTER 2023-05-11 08:54 | Outpatient (CLI) | payer OTHER, SELFPAY ==
[2023-05-11 09:20] LABS: Hemoglobin 11.7 g/dL (12.0-15.0); Mean Corpuscular HGB Conc 33.4 g/dl (32-36); Mean Corpuscular Hemoglobin 29.8 pg (26-34); Mean Corpuscular Volume 89.3 fl (80-100); Mean Platelet Volume 9.5 fl (7.4-10.4); Platelet Count Result 292 k/mm3 (150-375); Red Blood Count 3.92 M/mm3 (4.2-5.4); Red Cell Distribution Width 12.8 % (11.5-14.5)
[2023-05-11 09:48] LABS: Alanine Aminotransferase 20 U/L (6-35); Albumin Level 3.8 g/dL (3.5-5.1); Alkaline Phosphatase 85 U/L (38-126); Amylase 107 U/L (30-110); Anion Gap 9 mmol/L (8-16); Aspartate Amino Transferase 29 U/L (14-36); Blood Urea Nitrogen 7 mg/dL (7-17); Calcium 8.9 mg/dL (8.4-10.2); Carbon Dioxide 26 mmol/L (22-30); Chloride 99 mmol/L (98-107); Estimated Glomerular Filt Rate > 60; Glucose 127 mg/dL (65-110); Lipase 161 U/L (23-300); Potassium 3.5 mmol/L (3.4-5.0); Sodium 134 mmol/L (137-145)
== END 2023-05-11 08:55 | disposition home or self-care (01) ==
LOC: ANHLAB 08:55
PROVIDERS: Visit Provider Internal Medicine Gastroenterology
DX: R74.01 Elevation of levels of liver transaminase levels (principal); K85.10 Biliary acute pancreatitis without necrosis or infection
CPT/HCPCS: 36415; 80053; 82150; 83690; 85027

== ENCOUNTER 2023-05-23 01:55 | Day surgery (SDC) | payer OTHER, SELFPAY ==
[2023-05-18 11:07] VITALS: BMI 24.5
[2023-05-23 12:05] VITALS: BP 123/63; PULSE 82; RESP 16; TEMP 36.3; O2SAT 100
[2023-05-23] MEDS: LACTATED RINGERS 1,000 ML 150 ML IV CONT (12:07)
--- NOTE | 2023-05-23 12:16 | WPDANESEPPF ---
Anes - Initial Pre Proc Eval Procedure: Operation Date: 05/23/23 13:30 Proposed Procedures p Esophagogastroduodenoscopy - Chris Rainey MD Date/Time: 05/23/23 12:16 Surgeon: Chris Rainey MD Pre Op Diagnosis: abdominal pain Patient Data Age: 57 Gender: F Height: 1.57 m Weight: 64.6 kg Last Vital Signs Temp 97.3 F L 05/23/23 12:05 Pulse 82 05/23/23 12:05 Resp 16 05/23/23 12:05 BP 123/63 05/23/23 12:05 Pulse Ox 100 05/23/23 12:05 O2 Del Method Room Air 05/23/23 12:05 Allergies Allergy/AdvReac Type Severity Reaction Status Date / Time shellfish derived Allergy Anaphylaxis Verified 05/23/23 12:03 shrimp Allergy Anaphylaxis Verified 05/23/23 12:03 Home Medications Medication Instructions Recorded Confirmed Type ondansetron HCl 4 mg tablet 4 mg PO Q6H PRN nausea and 05/17/23 05/23/23 Rx vomiting #90 tabs hydrocodone 5 mg-acetaminophen 325 1 tablet PO Q6-8H PRN Pain 05/18/23 05/23/23 History mg tablet ibuprofen 200 mg tablet 400 mg PO Q6H PRN Pain 05/23/23 05/23/23 History Patient hx anesthesia problems: none Family hx anesthesia problems: none Results Review: All pre-operative results and documents have been reviewed as part of the pre-operative evaluation. [facility] Past Medical History Medical History (Updated 05/23/23 @ 12:52 by Chris Rainey MD) Abdominal pain Ascites Colon cancer screening Unremarkable colonoscopy in September 2022. Nausea & vomiting SIRS (systemic inflammatory response syndrome) Vertigo Surgical History Surgical History H/O arthroscopic knee surgery History of delivery History of colonoscopy (09/2022) Family History Family History Father No problems noted. Other Cancer Social History Social History Social History: Surrogate medical decision maker: Brandon Roper, spouse. Code status: Full code. Smoking status: Never smoker Second hand tobacco smoke exposure: No Alcohol intake: never Drinks per week: 1 Alcohol use details: MAYBE 1/MONTH Substance use: never Substance use type: does not use Lack of Transportation: No Lack of Food: Never True Current Housing: I Have Housing Concerned About Future Housing: No Difficulty Paying Gas/Electric Bills: No Difficulty Paying for Meds: No Currently Unemployed: No Education: High School Diploma/GED Difficulty w/ Childcare or Family Care: No Living arrangements: with family Spiritual care concerns: No Anes - Eval Final PreProcedure Day of Procedure 05/23/23 12:16 Patient weight: normal Heart: regular rate and rhythm Lungs: clear to auscultation Airway: Mallampati scale class II Neurological: alert and oriented Last oral intake: >/= 8 hours ASA classification: II Emergent: no Anesthetic plan: proceed Anesthesia type and monitoring: general GIVS and standard monitoring Results Review: All pre-operative results and documents have been reviewed as part of the pre-operative evaluation. Informed Consent: The patient's anesthetic plan and its attendant risks and benefits were discussed with the patient/family/POA. Questions were solicited and answers provided to the satisfaction of the patient/family/POA.
--- NOTE | 2023-05-23 12:51 | PM.HPGS ---
History of Present Illness History of Present Illness Consent: Risks, benefits, and alternatives have been discussed and questions answered. Patient agrees to proceed with procedure. Chief complaint: abdominal pain Narrative: Jose Alfredo Roper is a 57 year old female with recent GS pancreatitis, then underwent cholecystectomy, still with abdominal pain and nausea, never had egd Review of Systems Constitutional: Constitutional: Denies headache(s) and Denies weakness Eyes: Eyes: Denies blurry vision ENT: Reports Normal hearing present, Denies headache(s) and Denies neck pain Cardiovascular: Cardiovascular: Denies chest pain and Denies dyspnea Respiratory: Respiratory: Denies dyspnea Gastrointestinal: Gastrointestinal: Reports no additional gastrointestinal complaints Genitourinary: Genitourinary: Denies dysuria Musculoskeletal: Musculoskeletal: Denies neck pain Integumentary/Breasts: Skin/Breast: Denies dry skin Neurologic: Reports Normal hearing present, Denies headache(s) and Denies weakness Psychiatric: Psychiatric: Denies anxiety Endocrine: Endocrine: Denies change in body appearance Hematologic/Lymphatic: Hematologic/Lymphatic: Denies easy bleeding Allergic/Immunologic: Allergic/Immunologic: Denies urticaria PMFSH Past Medical History Medical History (Updated 05/23/23 @ 12:52 by Chris Rainey MD) Abdominal pain Ascites Colon cancer screening Unremarkable colonoscopy in September 2022. Nausea & vomiting SIRS (systemic inflammatory response syndrome) Vertigo Surgical History Surgical History H/O arthroscopic knee surgery History of delivery History of colonoscopy (09/2022) Family History Family History Father No problems noted. Other Cancer Social History Social History Social History: Surrogate medical decision maker: Brandon Roper, spouse. Code status: Full code. Smoking status: Never smoker Second hand tobacco smoke exposure: No Alcohol intake: never Drinks per week: 1 Alcohol use details: MAYBE 1/MONTH Substance use: never Substance use type: does not use Lack of Transportation: No Lack of Food: Never True Current Housing: I Have Housing Concerned About Future Housing: No Difficulty Paying Gas/Electric Bills: No Difficulty Paying for Meds: No Currently Unemployed: No Education: High School Diploma/GED Difficulty w/ Childcare or Family Care: No Living arrangements: with family Spiritual care concerns: No Meds Home Medications and Allergies Home Medications Medication Instructions Recorded Confirmed Type ondansetron HCl 4 mg tablet 4 mg PO Q6H PRN nausea and 05/17/23 05/23/23 Rx vomiting #90 tabs hydrocodone 5 mg-acetaminophen 325 1 tablet PO Q6-8H PRN Pain 05/18/23 05/23/23 History mg tablet ibuprofen 200 mg tablet 400 mg PO Q6H PRN Pain 05/23/23 05/23/23 History Allergies Allergy/AdvReac Type Severity Reaction Status Date / Time shellfish derived Allergy Anaphylaxis Verified 05/23/23 12:03 shrimp Allergy Anaphylaxis Verified 05/23/23 12:03 Vital Signs Vital Signs - 24 hr 05/23/23 12:05 Temperature 97.3 F L Pulse Rate 82 Respiratory Rate 16 Blood Pressure 123/63 Pulse Oximetry 100 Oxygen Delivery Room Air Exam Const: General: comfortable and no acute distress HENMT: Face/Nose/Sinus: Normal nares present Eyes: General: appearance normal, both eyes and all related structures Neck: Neck: no JVD Resp: Auscultation: clear to auscultation bilaterally Cardio: Rate: regular rate Rhythm: regular rhythm GI: Inspection: non-distended GI Palp: Yes Soft to palpation Skin: General skin exam: normal color Neuro: General: gait normal Speech: normal speech Extrem: General: normal to inspection Psych
[2023-05-23 13:13] VITALS: BP 94/43; PULSE 84; RESP 22; O2SAT 99
[2023-05-23 13:23] VITALS: BP 100/94; PULSE 81; RESP 21; O2SAT 100
[2023-05-23 13:33] VITALS: BP 133/91; PULSE 69; RESP 23; O2SAT 100
[2023-05-23 13:43] VITALS: BP 118/55; PULSE 73; RESP 23; O2SAT 100
[2023-05-23 13:53] VITALS: BP 133/61; PULSE 72; RESP 18; O2SAT 100
== END 2023-05-23 14:02 | disposition home or self-care (01) ==
PROVIDERS: Visit Provider Internal Medicine Gastroenterology
PROC: 0DJ08ZZ Inspection of Upper Intestinal Tract, Via Natural or Artificial Opening Endoscopic (ICD-10-PCS; CPT 43235; principal; 2023-05-23 13:30)
DX: K29.50 Unspecified chronic gastritis without bleeding (principal); B96.81 Helicobacter pylori [H. pylori] as the cause of diseases classified elsewhere
CPT/HCPCS: 43239; 88305; J2704; J7120

== ENCOUNTER 2023-05-24 14:59 | Outpatient (CLI) | payer OTHER, SELFPAY ==
--- NOTE | ~2023-05-24 | CT_ITS ---
EXAMINATION: CT abdomen pelvis w con DATE: 05/24/2023 15:41 INDICATION: Abdominal pain. Nausea. TECHNIQUE: Computed tomography (CT) of the abdomen and pelvis was performed with 100 mL Omnipaque 350 intravenous contrast. Automated exposure control and iterative reconstruction technique were employe d. The dose-length product was 316.34 mGy-cm. COMPARISON: CT abdomen and pelvis 03/05/2023, abdomen MRI 03/06/2023 FINDINGS: The visualized portions of the lung bases demonstrate mild atelectasis. No pleural effusion . There is a small right posterior diaphragmatic hernia containing fat. The heart size is normal. No pericardial effusion. There are multiple hypodense masses in the liver measuring up to 16 mm correlat ing with focal steatosis on MRI. There are changes of cholecystectomy. The spleen is normal. There is architectural distortion of the pancreas with adjacent fat stranding. There is a 15.0 x 8.5 x 10.6 c m rim-enhancing collection involving the pancreas. The adrenal glands and right kidney are normal. Th ere is an 8 mm mass of fat in left kidney, consistent with an angiomyolipoma. There is urothelial hyp erenhancement in left renal pelvis, consistent with pyelitis. 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 There are no dilated loops of bowel. The appendix is normal. T here are no pathologically enlarged lymph nodes. There is a small volume of pelvic ascites. There is mild thoracic and lumbar spondylosis. IMPRESSION: 1. Necrotic pancreatitis with walled off necrosis measuring 15.0 x 8.5 x 10.6 cm. 2. Left-sided pyelitis. 3. Small volume of pelvic ascites. Reviewed, dictated and finalized at location E. TERIA MONITOR IMPRESSION: 1. Necrotic pancreatitis with walled off necrosis measuring 15.0 x 8.5 x 10.6 c m. 2. Left-sided pyelitis. 3. Small volume of pelvic ascites.
== END 2023-05-24 15:00 | disposition home or self-care (01) ==
LOC: ANHIMG 15:12
PROVIDERS: Visit Provider Internal Medicine Gastroenterology
DX: R10.9 Unspecified abdominal pain (principal); R18.8 Other ascites; N12 Tubulo-interstitial nephritis, not specified as acute or chronic
CPT/HCPCS: 74177; Q9967

== ENCOUNTER 2023-06-23 13:07 | Outpatient (CLI) | payer OTHER, SELFPAY ==
--- NOTE | ~2023-06-23 | CT_ITS ---
CT of the Abdomen and Pelvis: Indication: Abdominal pain Technique: 2.5 mm axial scans were obtained through the abdomen and pelvis following intravenous adm inistration of 100 cc of Omnipaque 350. Dose reduction technique was used on this scan by utilizing a utomated exposure control and iterative reconstruction technique. The dose-length product (DLP) was 4 08.97 mGy-cm. COMPARISON: 05/24/2023 Findings: Scans through the lung bases are unremarkable. Stable subtle hypodense areas in the liver present, shown on prior MRI to represent focal steatosis. Cholecystectomy clips are present. The spleen, adrenals and kidneys are within normal limits. 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 No evidence of aortic aneurysm. No lymp hadenopathy. The large area of walled off necrosis seen on prior exam is markedly decreased in size, and patient i s status post transgastric drain placement. There is a very small residual collection present current ly measuring 2.8 x 1.5 cm. Necrosis the pancreatic neck/proximal body is probably present. No bowel obstruction or bowel wall thickening. There is no evidence to suggest acute appendicitis. Images through the pelvis were performed. Urinary bladder unremarkable. No pelvic mass evident. No pe lvic ascites. Impression: Status post transgastric drainage of the previously noted large collection of walled off necrosis, wh ich is markedly decreased in size. There is a 2.8 x 1.5 cm residual fluid collection about the transg astric drain currently. Stable areas of focal steatosis the liver. Reviewed, dictated and finalized at location . FIC DIRECTOR Impression: Status post transgastric drainage of the previously noted large collection of w alled off necrosis, which is markedly decreased in size. There is a 2.8 x 1.5 c m residual fluid collection about the transgastric drain currently. Stable areas of focal steatosis the liver.
== END 2023-06-23 13:08 | disposition home or self-care (01) ==
LOC: ANHIMG 13:10
PROVIDERS: Visit Provider Internal Medicine Gastroenterology
DX: R10.9 Unspecified abdominal pain (principal); K86.89 Other specified diseases of pancreas
CPT/HCPCS: 74177; Q9967